=== PATIENT | male | born 1985 | race Caucasian/White ===

== ENCOUNTER 2024-04-02 03:15 | Emergency (ER) | payer MEDICARE, SELFPAY ==
--- NOTE | ~2024-04-02 | CT_ITS ---
EXAMINATION: NONCONTRAST HEAD CT NONCONTRAST CERVICAL SPINE CT INDICATION INFORMATION: Fall with injury COMPARISON: 02/10/2021 TECHNIQUE: Separate noncontrast CT examinations of the head and cervical spine were performed. Coronal head CT images and coronal and sagittal cervical spine images were created at the technologist workstation. DLP: 1545 mGy-cm DOSE LOWERING TECHNIQUES: This CT examination was performed using dose optimization techniques as appropriate, variously including the following: - Automated exposure control - Adjustment of mA and/or kV according to patient size (this includes techniques or standardized protocols for targeted exams were dose is matched to indication/reason for exam; i.e. extremities or head) - Use of iterative reconstruction technique FINDINGS: Head: Redemonstrated regions of right frontal and left frontotemporal encephalomalacia which appears slightly progressive on the left compared to prior. There is no evidence of acute intracranial hemorrhage or definite acute territorial infarction in this setting though evaluation for acute pathology is limited in some regions given the background changes. There is some leftward bowing of the falx anteriorly which is suggestive of a chronic finding. Redemonstrated region of chronic hypoattenuation in the inferior left cerebellum. Soto to white matter differentiation is otherwise preserved. No acute extra-axial fluid collections are identified. Increased size of the left lateral ventricle, suspicious for progressive ex vacuo dilatation. Subcutaneous swelling/hematoma noted in the left parietal region. No acute fracture is seen. Redemonstrated postoperative changes of the left calvarium including with graft material. The mastoid air cells and visualized portions of the paranasal sinuses are well-aerated. Cervical spine: There is anatomic alignment of the vertebral bodies and posterior elements. Vertebral body heights are maintained. There is disc space narrowing and endplate osteophyte formation in the lower cervical spine. No evidence of acute fracture. No prevertebral soft tissue swelling. Visualized portions of the lung apices are unremarkable. The thyroid gland is unremarkable. CT/CT cervical spine wo IV con IMPRESSION: HEAD: No acute intracranial findings identified. Subcutaneous swelling/hematoma in the left parietal region. Redemonstrated chronic intracranial changes including regions of right frontal and left frontotemporal encephalomalacia. CERVICAL SPINE: No acute findings identified.
[2024-04-02 03:23] VITALS: BP 129/74; PULSE 92; RESP 18; TEMP 36.4; O2SAT 97; BMI 33.9
[2024-04-02 03:25] VITALS: BP 129/74; PULSE 92; RESP 17; TEMP 36.4; O2SAT 94
--- NOTE | 2024-04-02 03:41 | PC.NURSE ---
pt belongings placed in C5.
--- NOTE | 2024-04-02 03:42 | ED.ALCOHOL ---
HPI - Alcohol General Chief Complaint: ETOH/Substance Use Stated Complaint: etoh Time Seen by Provider: 04/02/24 03:33 Source: family (Mother, Loi) and EMS Mode of arrival: EMS Limitations: other (Patient refused to talk) History of Present Illness ED Provider: Dr. Waldemar Osborne HPI narrative: 35-year-old male with traumatic brain injury with craniotomy 2010 and known seizure disorder who presents emergency department for evaluation of altered mental status. According to nursing notes the patient was found lying in the middle of the street. Is felt that the patient was intoxicated he did have a left posterior scalp hematoma with minor scrapes on his elbow and knees. Patient does have traumatic brain injury with dysarthric speech. The patient refused to speak to the nurse but did speak to the clinical dental technician. The patient would not answer questions when I try to talk to him. Related Data Home Medications ?Medication ?Instructions ?Recorded ?Confirmed albuterol sulfate 90 mcg/actuation 2 puff inhalation Q6H PRN 01/24/23 aerosol inhaler (ProAir HFA) clonazepam 0.5 mg tablet 0.5 mg PO TID 01/24/23 labetalol 200 mg tablet 400 mg PO Q8H 01/24/23 levetiracetam 500 mg tablet 1,000 mg PO BID 01/24/23 omeprazole 20 mg tablet,delayed 20 mg PO DAILY 01/24/23 release Previous Rx's ?Medication ?Instructions ?Recorded sulfamethoxazole 800 1 tab PO BID 10 days #20 tabs 01/24/23 mg-trimethoprim 160 mg tablet (Bactrim DS) Allergies Allergy/AdvReac Type Severity Reaction Status Date / Time onion [ONIONS] Allergy Intermediate VOMIT BLOOD Verified 04/02/24 03:25 Review of Systems Review of Systems: Yes all other systems are reviewed and are negative PMFSH Past Medical History Medical History (Updated 04/02/24 @ 06:55 by Waldemar Osborne MD) Seizure Social History Social History Unable to assess alcohol history related to: Refusing to respond Patient Tobacco Use Status: Never used Tobacco Use of substances other than those prescribed or required for medical reasons: Refusing to respond Advance Directives: No Advance Directives Information Provided: No Physical Exam ED Vital Signs: Vital Signs - 24 hr 04/02/24 03:23 04/02/24 03:25 04/02/24 06:23 Temperature 97.6 F 97.6 F 97.8 F Pulse Rate 92 92 86 Respiratory Rate 18 17 17 Blood Pressure 129/74 129/74 100/73 Pulse Oximetry 97 94 95 Oxygen Delivery Method Room Air Room Air Room Air BMI result Body Mass Index 33.9 Vital signs were Exam: General: Awake, he does not appear to be in distress, he was nonverbal Head: Patient has a left frontal parietal skull defect secondary to craniotomy, patient has a 3 x 3 cm hematoma to the left posterior aspect of his scalp EENT: PERRL, Lids normal, sclera normal, conjunctiva normal, nose normal , ears normal, throat without erythema or exudates Neck: Supple, no adenopathy Lung: breath sounds symmetric, no wheezing, rales or rhonchi Chest: symmetric movement, nontender Heart: regular rate and rhythm, normal S1, S2 no murmurs or rubs Abdomen: soft, non-tender, nondistended, normal bowel sounds Back: no vertebral tenderness, no CVAT Extremities: no deformities, he does have abrasions on his elbows and knees Neuro: Awake, patient is nonverbal, he appears to be able to move all his extremities symmetrically Medical Decision Making Medical Decision Making MDM Narrative: 35-year-old male with traumatic brain injury with craniotomy 2010 and known seizure disorder who presents emergency department for evaluation of altered mental status who was found lying in the middle the street with scalp hematoma to the left posterior aspect of his head, abrasions on his knees and elbows and question of alcohol intoxication. The patient has dysarthric speech secondary to his traumatic brain injury but was not answering questions atrial presentation to the emergency department. Patient's vital signs were normal. Patient's physical examination did reveal a left posterior scalp hematoma and abrasions on his knees and elbows otherwise exam was unremarkable. Differential diagnosis: ?Includes but is not limited to closed head injury, cerebral bleed, seizure, postictal aphasia, alcohol intoxication, polysubstance use, anemia, electrolyte abnormalities Following evaluation was ordered: CT scan of the brain and cervical spine without contrast, CBC, CMP, lipase, magnesium, ethanol level, urine drug screen Course: 04:55 My independent interpretation patient's laboratory evaluation as follows: CBC was normal. CMP was normal. Lipase was normal. Ethanol level was elevated at 341. CT scan of the patient's head and cervical spine did not reveal any acute findings. Patient's fall most likely secondary to alcohol intoxication however seizure can not be excluded. I did discuss these findings with the patient and the patient's mother. Staff did walk the patient however he did appear to be ataxic therefore he will be kept in the emergency department several more hours until he was able to walk without staggering. 06:56 The patient was walked by me and an telecommunications field technician. Patient's gait significantly improved. His mother states that his gait appears to be back to normal and she was making home at this time. Admission/Observation Consideration of admission/observation: Escalation of care including admission/observation considered Lab Data MDM Lab Attestation statement: I reviewed the patient's lab results. 04/02/24 03:45 04/02/24 03:45 Labs: Lab Results 04/02/24 04/02/24 Range/Units 03:45 04:30 WBC 7.2 (4.8-10.8) X10*3/uL RBC 4.78 (4.60-5.80) X10*6/uL Hgb 14.2 (14.0-18.0) g/dl Hct 40.0 L (42.0-52.0) % MCV 83.7 (80.0-98.0) fL MCH 29.7 (27.0-33.0) pg MCHC 35.5 (31.0-36.0) g/dl RDW 12.2 (11.0-16.0) % Plt Count 232 (160-400) X10*3/uL MPV 8.9 L (9.4-12.4) fL Immature Gran % (Auto) 0.7 H (0.0-0.4) % Neut % (Auto) 43.9 L (45-73) % Lymph % (Auto) 42.2 H (20-40) % Larimer % (Auto) 6.7 (2-11) % Eos % (Auto) 5.7 H (0-4) % Baso % (Auto) 0.8 (0-2) % Lymph # (Auto) 3.0 (1.2-4.9) X10*3/uL Larimer # (Auto) 0.5 (0.1-1.2) X10*3/uL Eos # (Auto) 0.4 (0.0-0.4) X10*3/uL Baso # (Auto) 0.1 (0.0-0.2) X10*3/uL Abs Immat Gran (auto) 0.05 H (0.00-0.03) X10*3/uL Absolute Neuts (auto) 3.1 (2.0-8.3) x10*3/uL Absolute Nucleated RBC 0.000 (0.0-0.012) X10*3/uL Nucleated RBC % (auto) 0.0 (0.0-0.2) /100WBC Sodium 141 (135-145) mmol/L Potassium 4.2 (3.3-5.1) mmol/L Chloride 107 (96-108) mmol/L Carbon Dioxide 22 (22-29) mmol/L Anion Gap 16 (12-20) BUN 9 (9-16) mg/dL Creatinine 1.03 (0.5-1.4) mg/dL Estim Creat Clear Calc 116.9 Estimated GFR > 60 Random Glucose 97 (60-115) mg/dL Calcium 9.2 D (8.4-10.2) mg/dL Magnesium 2.1 (1.6-2.6) mg/dL Total Bilirubin 0.4 (0.0-1.0) mg/dL AST 25 (5-37) U/L ALT 55 H (0-40) U/L Alkaline Phosphatase 60 (39-117) U/L Total Protein 7.4 (6.5-8.0) g/dL Albumin 4.5 (3.5-5.0) g/dL Lipase 30 (8-78) U/L Urine Opiates Screen Not Detected (Not Detect) Ur Buprenorphine Scrn Not Detected (Not Detect) ng/mL Ur Oxycodone Screen Not Detected (Not Detect) ng/mL Urine Methadone Screen Not Detected (Not Detect) ng/mL Urine Fentanyl Screen Not Detected (Not Detect) Ur Barbiturates Screen Not Detected (Not Detect) Ur Phencyclidine Scrn Not Detected (Not Detect) Ur Amphetamines Screen Not Detected (Not Detect) U Benzodiazepines Scrn Not Detected (Not Detect) Urine Cocaine Screen POSITIVE H (Not Detect) U Marijuana (THC) Screen Not Detected (Not Detect) Ethyl Alcohol 341 H* mg/dL Radiology Impression Discussion of test interpretation with radiology: I have reviewed the radiologist's reading. Radiologist Impression: CT head and cervical spine wo IV con IMPRESSION: HEAD: No acute intracranial findings identified. Subcutaneous swelling/hematoma in the left parietal region. Redemonstrated chronic intracranial changes including regions of right frontal and left frontotemporal encephalomalacia. CERVICAL SPINE: No acute findings identified. Dictated By: Larry Zelaya MD Discharge Plan Discharge Clinical Impression: Fall, Alcoholic intoxication, Head injury, Hematoma of left parietal scalp Patient Disposition: Home, Self-Care Additional Instructions: Your blood work was unremarkable except for a very high alcohol level. When we check your blood the alcohol level that represents intoxication is 80. Your blood alcohol level today was 341 which is extremely high. The CT scan of your head and neck did not reveal any skull fractures or bleeding in the brain which is reassuring. Continue taking medications as prescribed by your providers Follow-up with your doctor in 2 days. Please return to the emergency department if your symptoms get worse or if you develop any symptoms that are concerning to you. Prescriptions: No Action clonazepam 0.5 mg tablet 0.5 mg PO TID labetalol 200 mg tablet 400 mg PO Q8H omeprazole 20 mg tablet,delayed release (DR/EC) 20 mg PO DAILY levetiracetam 500 mg tablet 1,000 mg PO BID albuterol sulfate [ProAir HFA] 90 mcg/actuation HFA aerosol inhaler 2 puff inhalation Q6H PRN sulfamethoxazole-trimethoprim [Bactrim DS] 800-160 mg tablet 1 tab PO BID 10 Days Qty: 20 0RF Print Language: Bahamian
[2024-04-02 03:48] LABS: MANUAL DIFF FLAG NO
[2024-04-02 03:49] LABS: Basophils Absolute Auto 0.1 X10*3/uL (0.0-0.2); Basophils Percent Auto 0.8 % (0-2); Eosinophils Absolute Auto 0.4 X10*3/uL (0.0-0.4); Eosinophils Percent Auto 5.7 % (0-4); Hemoglobin 14.2 g/dl (14.0-18.0); Imm Gran Abs Auto 0.05 X10*3/uL (0.00-0.03); Imm Gran Pct Auto 0.7 % (0.0-0.4); Lymphocytes Percent Auto 42.2 % (20-40); Mean Corpuscular HGB Conc 35.5 g/dl (31.0-36.0); Mean Corpuscular Hemoglobin 29.7 pg (27.0-33.0); Mean Corpuscular Volume 83.7 fL (80.0-98.0); Mean Platelet Volume 8.9 fL (9.4-12.4); Monocytes Absolute Auto 0.5 X10*3/uL (0.1-1.2); Monocytes Percent Auto 6.7 % (2-11); Neutrophils Absolute Auto 3.1 x10*3/uL (2.0-8.3); Neutrophils Percent Auto 43.9 % (45-73); Platelet Count 232 X10*3/uL (160-400); Red Blood Count 4.78 X10*6/uL (4.60-5.80); Red Cell Distribution Width 12.2 % (11.0-16.0); White Blood Count 7.2 X10*3/uL (4.8-10.8)
[2024-04-02 04:05] LABS: Alanine Aminotransferase 55 U/L (0-40); Albumin Level 4.5 g/dL (3.5-5.0); Alkaline Phosphatase 60 U/L (39-117); Anion Gap 16 (12-20); Aspartate Amino Transferase 25 U/L (5-37); Bilirubin Total 0.4 mg/dL (0.0-1.0); Blood Urea Nitrogen 9 mg/dL (9-16); Calcium 9.2 mg/dL (8.4-10.2); Carbon Dioxide 22 mmol/L (22-29); Chloride 107 mmol/L (96-108); Creatinine Clr Calc Pharmacy 116.9; Estimated Glomerular Filt Rate > 60; Ethanol 341 mg/dL; Glucose Random 97 mg/dL (60-115); Lipase 30 U/L (8-78); Magnesium 2.1 mg/dL (1.6-2.6); Potassium 4.2 mmol/L (3.3-5.1); Sodium 141 mmol/L (135-145); Total Protein 7.4 g/dL (6.5-8.0)
[2024-04-02 04:49] LABS: Amphetamine Screen Urine Not Detected (Not Detect); Barbiturates, Urine Not Detected (Not Detect); Benzodiazepines Screen Urine Not Detected (Not Detect); Buprenorphine Scr Not Detected (Not Detect); Cannabinoid Screen Urine Not Detected (Not Detect); Cocaine Screen Urine POSITIVE (Not Detect); Fentanyl, urine Not Detected (Not Detect); Methadone Screen, Urine Not Detected (Not Detect); Opiate Screen Urine Not Detected (Not Detect); Oxycodone Screen Urine Not Detected (Not Detect); Phencyclidine Screen Urine Not Detected (Not Detect)
--- OUTSIDE RECORDS SUMMARY | 2024-04-02 06:17 | XMS_ITS | Continuity of Care Document ---
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 (Discharge Diagnosis) - 10/23/23 History of substance abuse(Discharge Diagnosis) - 10/23/23 Attending Physician: Annalisa Mishra MD Allergies, Adverse Reactions, Alerts Substance Reaction Severity Status Onions stomach bleed Active Immunizations Given and Recorded Vaccine Date Status Refusal Reason tetanus/diphtheria/pertussis, acel(Tdap) 02/10/21 Recorded SARS-CoV-2 (COVID-19) mRNA-1273 vaccine 02/09/21 R ecorded SARS-CoV-2 (COVID-19) mRNA-1273 vaccine 01/10/21 R ecorded tetanus-diphtheria toxoids (Td) 09/08/17 Recorded influenza virus vaccine, inactivated 07/04/17 Marvin rded pneumococcal 23-valent vaccine 08/21/11 Given Medications albuterol 90 mcg/inh inhalation powder 2 puffs = 180 mcg, Inhalation, Every 6 hours, PRN as needed, # 1 each, 3 Refills, Maintenance, 07/18/21 13:34:00 EST, Powder, [id number], Partial fill upon patient request if the prescriptionis for a schedule II opioid drug., 2 puffs Inhalati... Start Date: 07/18/21 Status: Ordered Benefiber oral powder for reconstitution = 3.5 Gm, By Mouth, Daily, dissolve in 4 to 8 oz of beverage, # 105 Gm, 2 Refills, Maintenance, 06/03/23 13:34:00 EDT, REC Powder, [facility][id number], Partial fill upon patient request if the prescription is for a schedule II opioid drug., 3.5 Gm By M... Start Date: 06/03/23 Stop Date: 09/01/23 Status: Ordered clonazePAM 0.5 mg oral tablet 1 tablet, By Mouth, 3 times a day, # 84 tablet, 0 Refills, Maintenance, 06/29/23 17:01:00 EDT, [facility] #[id number], 178, cm, 06/03/23 13:07:00 EDT, Height, 104.4, kg, 04/27/23 7:15:00 EDT, Dry Weight Start Date: 06/29/23 Status: Ordered clonazePAM 0.5 mg oral tablet 1 tablet = 0.5 mg, By Mouth, 3 times a day, PRN Anxiety, # 84 tablet, 0 Refills, Maintenance, 09/24/23 15:05:00 EST, [facility] #[id number], 178, cm, 09/10/23 9:22:00 EST, Height, 104.4, kg, 04/27/23 7:15:00 EDT, Dry Weight Start Date: 09/24/23 Status: Ordered D3 By Mouth, Daily, 0 Refills, Maintenance, 07/28/22 13:48:00 EST, Partial fill upon patient request if the prescription is for a schedule II opioid drug. Start Date: 07/28/22 Status: Ordered dicyclomine 10 mg oral capsule 1 capsule, By Mouth, 4 times a day, PRN NEEDED FOR IBS CRAMPING, # 360 capsule, 1 Refills, Maintenance, 09/17/23 12:02:00 EST, [facility] ST[id number], 178, cm, 09/10/23 9:22:00 EST, Height, 104.4, kg, 04/27/23 7:15:00 EDT, Dry Weight Start Date: 09/17/23 Status: Ordered Eliquis 5 mg oral tablet 1 tablet = 5 mg, By Mouth, 2 times a day, # 60 tablet, 5 Refills, Maintenance, 10/12/23 10:38:00 EST, Tablet, Partial fill upon patient request if the prescription is for a schedule II opioid drug. Start Date: 10/12/23 Status: Ordered labetalol 200 mg oral tablet 2 tablet, By Mouth, Every 8 hours, # 540 tablet, 1 Refills, Maintenance, 09/17/23 18:52:00 EST, [id number], 178, cm, 09/10/23 9:22:00 EST, Height, 104.4, kg, 04/27/23 7:15:00 EDT, Dry Weight Start Date: 09/17/23 Status: Ordered levETIRAcetam 500 mg oral tablet 2 tablet, By Mouth, 2 times a day, # 360 tablet, 1 Refills, Maintenance, 06/04/23 12:05:00 EDT, [id number], 178, cm, 06/03/23 13:07:00 EDT, Height, 104.4, kg, 04/27/23 7:15:00 EDT, Dry Weight Start Date: 06/04/23 Status: Ordered Multivitamin Tablet 1 tablet, Nasogastric Tube, Daily, 0 Refills, Maintenance, 04/04/21 14:18:00 EDT, Tablet, Partial fill upon patient request if the prescription is for a schedule II opioid drug. Start Date: 04/04/21 Status: Ordered naltrexone 50 mg oral tablet See Instructions, By Mouth Daily 1/2 tablet for 10 days the 1 tablet thereare, # 30 tablet, 3 Refills, Maintenance, 05/20/22 10:20:00 EDT, Tablet, [facility]/pharm[facility] #[id number], Partial fill upon patient request if the prescription is for a schedule II opioid drTimo. Start Date: 05/20/22 Status: Ordered omeprazole 20 mg oral delayed release tablet 1 tablet, By Mouth, Daily, # 30 tablet, 1 Refills, Maintenance, 11/16/22 17:01:00 EDT, [id number], 173.7, cm, 10/23/22 9:44:00 EST, Height, 104.5, kg, 04/01/21 6:08:00 EDT, Dry Weight Start Date: 11/16/22 Status: Ordered RisperDAL 0.25 mg oral tablet 0.25 mg, 1, tablet, By Mouth, 2 times a day, # 60 tablet, Refills 2, Tot. Refills 2, Maintenance, 07/18/21 13:36:00 EST, Route to Pharmacy Electronically, [facility]/pharmacy #[id number], Partial fill upon patient request if the prescription is for a schedule II o... Start Date: 07/18/21 Status: Ordered sertraline 100 mg oral tablet 1 tablet = 100 mg, By Mouth, Daily, # 90 tablet, 3 Refills, Maintenance, 04/23/21 16:47:00 EDT, Tablet, [facility]/pharm[facility] #[id number], Partial fill upon patient request if the prescription is for a schedule II opioid drug., 173.7, cm, 04/23/21 14:42:00 EDT, Heig... 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 Active Equilibrium disorder Confirmed Active Alcohol use disorder, moderate, dependence Confirmed Active Obese class I Confirmed Active MDD (major depressive disorder), recurrent episode Confirmed Active Seizures Confirmed Active TBI (traumatic brain injury) Confirmed Active Urinary incontinence Confirmed Active 14864 Diagnosis Diagnosis Type Effective Dates Health Status Clinical Service Informant Penile cyst Discharge Diagnosis 10/23/23 Alcohol use disorder, moderate, dependence Discharge Diagnosis 10/23/23 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 Discharge Diagnosis 10/23/23 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 Discharge Diagnosis 10/23/23 History of substance abuse Discharge Diagnosis 10/23/23 Vital Signs Most recent to oldest [Reference Range]: 1 Height 178 cm (10/23/23 12:39 PM) Weight 105.3 kg (10/23/23 12:39 PM) Oxygen Saturation [94-100 %] 99 % (10/23/23 12:39 PM) Pulse Rate [55-90 bpm] 64 bpm (10/23/23 12:39 PM) Body Mass Index [18.5-24.99 kg/m2] 33.23 kg/m2 *>HHI* (10/23/23 12:39 PM) Blood Pressure [90-138/55-84 mm Hg] 114/ 76mm Hg (10/23/23 12:39 PM) Blood pressure sites Arm, left (10/23/23 12:39 PM) Weight Obtained Via Standing scale (10/23/23 12:39 PM) Social History Social History Type Response Smoking Status Never (less than 100 in lifetime) entered on: 04/17/21 Sex Patient Care team information Care Team Personnel Name: Annalisa Mishra MD Position: [facility] Physician - Primary Care Member Role: PCP Address: Address: [address] [place] [address] Name: Oneyda Swift RN Position: [facility] ED RN W/OE and Tasks Member Role: Primary Care Nurse Name: Shelley Cowan RN Position: [facility] RN Supv Member Role: Primary Care Nurse Name: Mary Cordoba RN Position: [facility] RN Member Role: Primary Care Nurse Name: Brenda Cabrera RN Position: [facility] SN RN Member Role: Primary Care Nurse Name: Rosa Ngo RN Position: [facility] RN Member Role: Primary Care Nurse Name: Caryn Tripathi RN Position: [facility] RN Member Role: Primary Care Nurse Name: Roma Baker RN Position: [facility] RN Member Role: Primary Care Nurse Name: Anthony Fowler RN Position: [facility] RN Member Role: Primary Care Nurse Name: Janina Michele Position: S RN Member Role: Primary Care Nurse Name: Denise Ibarra RN Position: [facility] RN Member Role: Primary Care Nurse Name: Tiburcio Hercules RN Position: [facility] RN Supv Member Role: Primary Care Nurse Name: Brenna Collazo RN Position: [facility] RN Member Role: Primary Care Nurse Name: Susan Sheikh RN Position: S RN Member Role: Primary Care Nurse Name: Yesy Adams Position: S RN Member Role: Primary Care Nurse Name: Delores Garcia RN Position: [facility] RN Member Role: Primary Care Nurse Name: Suzanna Kim RN Position: [facility] RN Member Role: Primary Care Nurse Name: Chandrika Luis RN Position: S RN Member Role: Primary Care Nurse Name: Eda uLna RN Position: [facility] RN Member Role: Primary Care Nurse Care Team Related Persons Name: ELI KIM Address: [address] [address] Name: JUAN KIM
--- OUTSIDE RECORDS SUMMARY | 2024-04-02 06:17 | XMS_ITS | Continuity of Care Document ---
Author Organization [facility] Address [address] [place] [address]- Care Team Providers Care Maintenance Service Dispatcher Name Role Phone Annalisa Mishra MD Primary Care Physician Encounter [facility] Date(s): 09/24/23 - 10/24/23 [facility] [address] [place], [place] [address] Allergies, Adverse Reactions, Alerts Substance Reaction Severity [...] Refills, Maintenance, 07/18/21 13:34:00 EST, Powder, [id number], Partial fill upon patient request if the prescriptionis for a schedule II opioid drug., 2 puffs Inhalati... Start Date: 07/18/21 Status: Ordered Benefiber oral powder for reconstitution = 3.5 Gm, By Mouth, Daily, dissolve in 4 to 8 oz of beverage, # 105 Gm, 2 Refills, Maintenance, 06/03/23 13:34:00 EDT, REC Powder, [id number], Partial fill upon patient request if the prescription is for a schedule II opioid drug., 3.5 Gm By M... Start Date: 06/03/23 Stop Date: 09/01/23 Status: Ordered clonazePAM 0.5 mg oral tablet 1 tablet, By Mouth, 3 times a day, # 84 tablet, 0 Refills, Maintenance, 06/29/23 17:01:00 EDT, [facility]/pharmacy #[id number], 178, cm, 06/03/23 13:07:00 EDT, Height, 104.4, kg, 04/27/23 7:15:00 EDT, Dry Weight Start Date: 06/29/23 Status: Ordered clonazePAM 0.5 mg oral tablet 1 tablet = 0.5 mg, By Mouth, 3 times a day, PRN Anxiety, # 84 tablet, 0 Refills, Maintenance, 09/24/23 15:05:00 EST, [facility]/pharmacy #[id number], 178, cm, 09/10/23 9:22:00 EST, Height, [...] capsule, 1 Refills, Maintenance, 09/17/23 12:02:00 EST, [id number], 178, cm, 09/10/23 9:22:00 EST, Height, 104.4, [...] 1 Refills, Maintenance, 09/17/23 18:52:00 EST, [facility], 178, cm, 09/10/23 9:22:00 EST, Height, 104.4, kg, 04/27/23 7:15:00 EDT, Dry Weight Start Date: 09/17/23 Status: Ordered levETIRAcetam 500 mg oral tablet 2 tablet, By Mouth, 2 times a day, # 360 tablet, 1 Refills, Maintenance, 06/04/23 12:05:00 EDT, [facility], 178, cm, 06/03/23 13:07:00 EDT, Height, 104.4, [...] 3 Refills, Maintenance, 05/20/22 10:20:00 EDT, Tablet, [facility]/pharmacy #[id number], Partial fill upon patient request if the prescription is for a schedule II opioid dr... Start Date: 05/20/22 Status: Ordered omeprazole 20 mg oral delayed release tablet 1 tablet, By Mouth, Daily, # 30 tablet, 1 Refills, Maintenance, 11/16/22 17:01:00 EDT, [facility], 173.7, cm, 10/23/22 9:44:00 EST, Height, 104.5, kg, 04/01/21 6:08:00 EDT, Dry Weight Start Date: 11/16/22 Status: Ordered RisperDAL 0.25 mg oral tablet 0.25 mg, 1, tablet, By Mouth, 2 times a day, # 60 tablet, Refills 2, Tot. Refills 2, Maintenance, 07/18/21 13:36:00 EST, Route to Pharmacy Electronically, [facility]/pharmacy #[id number], Partial fill upon patient request if the prescription is for a schedule II o... Start Date: 07/18/21 Status: Ordered sertraline 100 mg oral tablet 1 tablet = 100 mg, By Mouth, Daily, # 90 tablet, 3 Refills, Maintenance, 04/23/21 16:47:00 EDT, Tablet, [facility]/pharmacy #[id number], Partial fill upon patient request if the [...] injury) Confirmed Active Urinary incontinence Confirmed Active 71503 Social History Social History Type Response Smoking Status Never (less than 100 in lifetime) entered on: 04/17/21 Sex Patient Care team information Care Team Personnel Name: Annalisa Mishra MD Position: [facility] Physician - Primary Care Member Role: PCP Address: Address: [address] [place] [address] Name: Oneyda Swift RN Position: [facility] ED RN W/OE and Tasks Member Role: Primary Care Nurse Name: Shelley Cowan RN Position: [facility] RN Supv Member Role: Primary Care Nurse Name: Brenda Cabrera RN Position: [facility] SN RN Member Role: Primary Care Nurse Name: Rosa Ngo RN Position: [facility] RN Member Role: Primary Care Nurse Name: Mary Calix RN Position: [facility] RN Member Role: Primary Care Nurse Name: Caryn Tripathi RN Position: [facility] RN Member Role: Primary Care Nurse Name: Roma Baker RN Position: [facility] RN Member Role: Primary Care Nurse Name: Anthony Fowler RN Position: [facility] RN Member Role: Primary Care Nurse Name: Janina Michele Position: [facility] RN Member Role: Primary Care Nurse Name: Denise Ibarra RN Position: [facility] RN Member Role: Primary Care Nurse Name: Tiburcio Herclues RN Position: [facility] RN Max Member Role: Primary Care Nurse Name: Brenna Collazo RN Position: [facility] RN Member Role: Primary Care Nurse Name: Susan Sheikh RN Position: [facility] RN Member Role: Primary Care Nurse Name: Yesy Adams Position: [facility] RN Member Role: Primary Care Nurse Name: Delores Garcia RN Position: [facility] RN Member Role: Primary Care Nurse Name: Suzanna Kim RN Position: [facility] RN Member Role: Primary Care Nurse Name: Chandrika Luis RN Position: [facility] RN Member Role: Primary Care Nurse Name: Eda Luna RN Position: [facility] RN Member Role: Primary Care Nurse Care Team Related Persons Name: ELI KIM Address: [address] [address] Name: JUAN KIM
--- OUTSIDE RECORDS SUMMARY | 2024-04-02 06:17 | XMS_ITS | Continuity of Care Document ---
Author Organization [facility] em Address Unknown Care Team Providers Care Word Processor Name Role Phone Annalisa Mishra MD Primary Care Physician [place] [facility] [place]11[place]23 - 03/18/23 [facility] Attending Physician: Melisa Olmstead MD Admitting Physician: Melisa Olmstead MD Allergies, Adverse Reactions, Alerts Substance Reaction [...] puffs Inhalati... Start Date: 07/18/21 Status: Ordered clonazePAM 0.5 mg oral tablet 1 tablet, By Mouth, 3 times a day, # 84 tablet, 0 Refills, Maintenance, 02/23/23 17:15:00 EDT, [id number], 173.7, cm, 02/04/23 9:59:00 EDT, Height, 104.5, kg, 04/01/21 6:08:00 EDT, Dry Weight Start Date: 02/23/23 Status: Ordered D3 By Mouth, Daily, 0 Refills, Maintenance, 07/28/22 13:48:00 EST, Partial fill upon patient request if the prescription is for a schedule II opioid drug. Start Date: 07/28/22 Status: Ordered Keppra 500 mg oral tablet 2 tablet = 1,000 mg, By Mouth, 2 times a day, # 120 tablet, 3 Refills, Maintenance, 02/27/22 12:47:00 EDT, Tablet, [id number], Partial fill upon patient request if the prescription is for a schedule II opioid drug., 173.7, cm, 01/31/22 9:57:00... Start Date: 02/27/22 Status: Ordered labetalol 200 mg oral tablet 2 tablet, By Mouth, Every 8 hours, # 540 tablet, 1 Refills, Maintenance, 09/30/22 15:25:00 EST, [facility], 173.7, cm, 07/28/22 13:45:00 EST, Height, 104.5, kg, 04/01/21 6:08:00 EDT, Dry Weight Start Date: 09/30/22 Status: Ordered levETIRAcetam 500 mg oral tablet 2 tablet = 1,000 mg, By Mouth, 2 times a day, # 360 tablet, 1 Refills, Maintenance, 01/26/23 16:00:00 EDT, [id number], 173.7, cm, 01/15/23 12:41:00 EDT, Height, 104.5, kg, 04/01/21 6:08:00 EDT, Dry Weight Start Date: 01/26/23 Status: Ordered Multivitamin Tablet 1 tablet, Nasogastric [...] 3 Refills, Maintenance, 05/20/22 10:20:00 EDT, Tablet, [id number], Partial fill upon patient request if the prescription is for a schedule II opioid dr... Start Date: 05/20/22 Status: Ordered omeprazole 20 mg oral delayed release tablet 1 tablet, By Mouth, Daily, # 30 tablet, 1 Refills, Maintenance, 11/16/22 17:01:00 EDT, [facility], 173.7, cm, 10/23/22 9:44:00 EST, Height, 104.5, kg, 04/01/21 6:08:00 EDT, Dry Weight Start Date: 11/16/22 Status: Ordered RisperDAL 0.25 mg oral tablet 0.25 mg, 1, tablet, By Mouth, 2 times a day, # 60 tablet, Refills 2, Tot. Refills 2, Maintenance, 07/18/21 13:36:00 EST, Route to Pharmacy Electronically, [facility]/pharmacy #[id number], Partial fill upon patient request if the prescription is for a schedule II o... Start Date: 07/18/21 Status: Ordered sertraline 100 mg oral tablet 1 tablet = 100 mg, By Mouth, Daily, # 90 tablet, 3 Refills, Maintenance, 04/23/21 16:47:00 EDT, Tablet, [facility]/pharmacy #[id number], Partial fill upon patient [...] injury Confirmed Active Equilibrium disorder Confirmed Active MDD (major depressive disorder), recurrent episode Confirmed Active Seizures Confirmed Active Severe obesity (BMI 35.0-39.9) with comorbidity Confirmed Active TBI (traumatic brain injury) Confirmed Active Urinary incontinence Confirmed Active 40811 Vital Signs Most recent to oldest [Reference Range]: 1 Height 173.7 cm (03/11/23 10:57 AM) Social History Social History Type Response Smoking Status Never (less than 100 in lifetime) entered on: 04/17/21 Sex Patient Care team information Care Team Personnel Name: Annalisa Mishra MD Position: [facility] Physician - Primary Care Member Role: PCP Address: Address: [address] [place] [id number] Name: Oneyda Swift RN Position: S RN Member Role: Primary Care Nurse Name: Shelley Cowan RN Position: [facility] RN Supv Member Role: Primary Care Nurse Name: Brenda Cabrera RN Position: [facility] SN RN Member Role: Primary Care Nurse Name: Rosa Ngo RN Position: [facility] RN Member Role: Primary Care Nurse Name: Charli Cosme RN Position: [facility] RN Member Role: Primary Care Nurse Name: Mary Calix RN Position: [facility] RN Member Role: Primary Care Nurse Name: Caryn Tripathi RN Position: [facility] RN Member Role: Primary Care Nurse Name: Roma Baker RN Position: [facility] RN Member Role: Primary Care Nurse Name: Anthony Fowler RN Position: [facility] RN Member Role: Primary Care Nurse Name: Janina Michele Position: [facility] RN Member Role: Primary Care Nurse Name: Denise Ibarra RN Position: [facility] RN Member Role: Primary Care Nurse Name: Tiburcio Hercules RN Position: [facility] RN Supv Member Role: Primary Care Nurse Name: Brenna Collazo RN Position: [facility] RN Member Role: Primary Care Nurse Name: Susan Sheikh RN Position: [facility] RN Member Role: Primary Care Nurse Name: Yesy Adams Position: [facility] RN Member Role: Primary Care Nurse Name: Delores Garcia RN Position: [facility] RN Member Role: Primary Care Nurse Name: Susan Bates RN Position: [facility] RN Member Role: Primary Care Nurse Name: Suzanna Kim RN Position: [facility] RN Member Role: Primary Care Nurse Name: Chandrika Luis RN Position: [facility] RN Member Role: Primary Care Nurse Name: Jessica Fulton RN Position: [facility] PCO w/OE and EZ Script Member Role: Primary Care Nurse Name: Eda Luna RN Position: [facility] RN Member Role: Primary Care Nurse Care Team Related Persons Name: ELI KIM Address: [address] [address]
--- OUTSIDE RECORDS SUMMARY | 2024-04-02 06:17 | XMS_ITS | Continuity of Care Document ---
Author Organization [facility] Address [address] [place] [address]- Care Team Providers Care Clinic Office Coordinator Name Role Phone Annalisa Mishra MD Primary Care Physician [place] [facility] [place]23 [place] 07/29/23 [facility] [address] [place], [place] [address] Allergies, Adverse Reactions, Alerts Substance Reaction [...] tablet, 0 Refills, Maintenance, 06/29/23 17:01:00 EDT, [id number], 178, cm, 06/03/23 13:07:00 EDT, Height, 104.4, kg, 04/27/23 7:15:00 EDT, Dry Weight Start Date: 06/29/23 Status: Ordered clonazePAM 0.5 mg oral tablet 1 tablet = 0.5 mg, By Mouth, 3 times a day, PRN Anxiety, # 84 tablet, 0 Refills, Maintenance, 07/23/23 14:06:00 EST, [id number], 178, cm, 06/03/23 13:07:00 EDT, Height, 104.4, kg, 04/27/23 7:15:00 EDT, Dry Weight Start Date: 07/23/23 Status: Ordered D3 By Mouth, Daily, 0 Refills, Maintenance, 07/28/22 13:48:00 EST, Partial fill upon patient request if the prescription is for a schedule II opioid drug. Start Date: 07/28/22 Status: Ordered dicyclomine 10 mg oral capsule 1 capsule = 10 mg, By Mouth, 4 times a day, PRN IBS cramping, # 120 capsule, 5 Refills, Maintenance, 06/03/23 13:34:00 EDT, Capsule, [id number], Partial fill upon patient request if the prescription is for a schedule II opioid drug., 178, cm,... Start Date: 06/03/23 Stop Date: 11/30/23 Status: Ordered labetalol 200 mg oral tablet 2 tablet, By Mouth, Every 8 hours, # 540 tablet, 1 Refills, Maintenance, 04/29/23 7:49:00 EDT, [id number], 178, cm, 04/27/23 7:15:00 EDT, Height, 104.4, kg, 04/27/23 7:15:00 EDT, Dry Weight Start Date: 04/29/23 Status: Ordered levETIRAcetam 500 mg oral tablet 2 tablet, By Mouth, 2 times a day, # 360 tablet, 1 Refills, Maintenance, 06/04/23 12:05:00 EDT, [facility], 178, cm, 06/03/23 13:07:00 EDT, Height, 104.4, [...] Refills, Maintenance, 11/16/22 17:01:00 EDT, [facility], 173.7, cm, 10/23/22 9:44:00 EST, Height, 104.5, kg, 04/01/21 6:08:00 EDT, Dry Weight Start Date: 11/16/22 Status: Ordered RisperDAL 0.25 mg oral tablet 0.25 mg, 1, tablet, By Mouth, 2 times a day, # 60 tablet, Refills 2, Tot. Refills 2, Maintenance, 07/18/21 13:36:00 EST, Route to Pharmacy Electronically, [id number], Partial fill upon patient request if the prescription is for a schedule II o... Start Date: 07/18/21 Status: Ordered sertraline 100 mg oral tablet 1 tablet = 100 mg, By Mouth, Daily, # 90 tablet, 3 Refills, Maintenance, 04/23/21 16:47:00 EDT, Tablet, [id number], Partial fill upon [...] injury Confirmed Active Equilibrium disorder Confirmed Active Obese class I Confirmed Active MDD (major depressive disorder), recurrent episode Confirmed Active Seizures Confirmed Active TBI (traumatic brain injury) Confirmed Active Urinary incontinence Confirmed Active 57147 Social History Social History Type Response Smoking Status Never (less than 100 in lifetime) entered on: 04/17/21 Sex Patient Care team information Care Team Personnel Name: Annalisa Mishra MD Position: [facility] Physician - Primary Care Member Role: PCP Address: Address: [address] [place] [address] Name: Oneyda Swift RN Position: [facility] ED RN W/OE and Tasks Member Role: Primary Care Nurse Name: Shelley Cowan RN Position: [facility] RN Supv Member Role: Primary Care Nurse Name: Brenda Cabrera RN Position: [facility] RN Member Role: Primary Care Nurse Name: Rosa Ngo RN Position: [facility] RN Member Role: Primary Care Nurse Name: Charli Cosme RN Position: [facility] RN Member Role: Primary Care Nurse Name: Mary Calix RN Position: [facility] RN Member Role: Primary Care Nurse Name: Caryn Tripathi RN Position: [facility] RN Member Role: Primary Care Nurse Name: Roma Baker RN Position: [facility] RN Member Role: Primary Care Nurse Name: Anthony Fowler RN Position: [facility] RN Member Role: Primary Care Nurse Name: Janina Michele Position: [facility] RN Member Role: Primary Care Nurse Name: Denise Ibarra RN Position: [facility] RN Member Role: Primary Care Nurse Name: Tiburcio Hercules RN Position: [facility] RN Supv Member Role: Primary Care Nurse Name: Brenna Collazo RN Position: [facility] RN Member Role: Primary Care Nurse Name: Susan Sheikh RN Position: [facility] RN Member Role: Primary Care Nurse Name: Yesy Adams Position: [facility] RN Member Role: Primary Care Nurse Name: Delores Garcia RN Position: [facility] RN Member Role: Primary Care Nurse Name: Susan Bates RN Position: [facility] RN Member Role: Primary Care Nurse Name: Suzanna Kim RN Position: [facility] RN Member Role: Primary Care Nurse Name: Chandrika Luis RN Position: [facility] RN Member Role: Primary Care Nurse Name: Eda Luna RN Position: [facility] RN Member Role: Primary Care Nurse Care Team Related Persons Name: ELI KIM Address: [address] [address]
--- OUTSIDE RECORDS SUMMARY | 2024-04-02 06:17 | XMS_ITS | Continuity of Care Document ---
Author Organization [facility] em Address Unknown Care Team Providers Care Stock Repairer Name Role Phone Annalisa Mishra MD Primary Care Physician [place] [facility] [place](s[place] 02/04/23 - 02/11/23 [facility] Attending Physician: Melisa Olmstead MD Admitting Physician: Melisa Olmstead MD Referring Physician: Denise Ya MD Allergies, Adverse Reactions, Alerts Substance Reaction [...] Status: Ordered clonazePAM 0.5 mg oral tablet See Instructions, TAKE 1 TABLET BY MOUTH 3 TIMES A DAY, # 84 tablet, 0 Refills, Maintenance, 02/03/23 14:35:00 EDT, [id number], 173.7, cm, 01/28/23 10:47:00 EDT, Height, 104.5, kg, 04/01/21 6:08:00 EDT, Dry Weight Start Date: 02/03/23 Status: Ordered D3 By Mouth, Daily, 0 Refills, Maintenance, 07/28/22 13:48:00 EST, Partial fill upon patient request if the prescription is for a schedule II opioid drug. Start Date: 07/28/22 Status: Ordered Golytely - oral powder for reconstitution See Instructions, Drink 240mL every 15 minutes until gone, # 4,000 mL, 0 Refills, Maintenance, 01/15/23 13:28:00 EDT, [facility]/pharmacy #[id number], Partial fill upon patient request if the prescription is for a schedule II opioid drug., Drink 240mL every 15 min... Start Date: 01/15/23 Status: Ordered Keppra 500 mg oral tablet [...] 1 Refills, Maintenance, 09/30/22 15:25:00 EST, [facility], 173.7, cm, 07/28/22 13:45:00 EST, Height, 104.5, [...] Refills, Maintenance, 11/16/22 17:01:00 EDT, [facility], 173.7, cm, 10/23/22 9:44:00 EST, Height, 104.5, [...] injury) Confirmed Active Urinary incontinence Confirmed Active 28266 Vital Signs Most recent to oldest [Reference Range]: 1 Height 173.7 cm (02/04/23 9:59 AM) Oxygen Saturation [94-100 %] 98 % (02/04/23 9:59 AM) Pulse Rate [55-90 bpm] 68 bpm (02/04/23 9:59 AM) Social History Social History Type Response Smoking Status Never (less than 100 in lifetime) entered on: 04/17/21 Sex Patient Care team information Care Team Personnel Name: Annalisa Mishra MD Position: [facility] Physician - Primary Care Member Role: PCP Address: Address: [address] [place] [address] Name: Oneyda Swift RN Position: S RN Member Role: Primary Care Nurse Name: Shelley Cowan RN Position: [facility] RN Supv Member Role: Primary Care Nurse Name: Brenda Cabrera RN Position: [facility] SN RN Member Role: Primary Care Nurse Name: Rosa Ngo RN Position: S RN Member Role: Primary Care Nurse Name: Charli Cosme RN Position: [facility] RN Member Role: Primary Care Nurse Name: Mary Calix RN Position: S RN Member Role: Primary Care Nurse Name: Caryn Tripathi RN Position: S RN Member Role: Primary Care Nurse Name: Roma Baker RN Position: [facility] RN Member Role: Primary Care Nurse Name: Anthony Fowler RN Position: S RN Member Role: Primary Care Nurse Name: Janina Michele Position: S RN Member Role: Primary Care Nurse Name: Denise Ibarra RN Position: S RN Member Role: Primary Care Nurse Name: Tiburcio Hercules RN Position: [facility] RN Supv Member Role: Primary Care Nurse Name: Brenna Collazo RN Position: [facility] RN Member Role: Primary Care Nurse Name: Susan Sheikh RN Position: S RN Member Role: Primary Care Nurse Name: Yesy Adams Position: S RN Member Role: Primary Care Nurse Name: Delores Garcia RN Position: [facility] RN Member Role: Primary Care Nurse Name: Susan Bates RN Position: [facility] RN Member Role: Primary Care Nurse Name: Suzanna Kim RN Position: [facility] RN Member Role: Primary Care Nurse Name: Chandrika Luis RN Position: [facility] RN Member Role: Primary Care Nurse Name: Jessica Fulton RN Position: [facility] PCO w/OE and EZ Script Member Role: Primary Care Nurse Name: Eda Luna RN Position: [facility] RN Member Role: Primary Care Nurse Care Team Related Persons Name: ELI KIM Address: [address] [address]
--- OUTSIDE RECORDS SUMMARY | 2024-04-02 06:17 | XMS_ITS | Continuity of Care Document ---
Author Organization [facility] Steve lt Address [address] [place] [address]- Care Team Providers Care Relationship Specialist Name Role Phone Annalisa Mishra MD Primary Care Physician Encounter [facility] [place] Date(s): 01/26/23 - 02/25/23 [facility] Adult [address] [place] [address]- Allergies, Adverse Reactions, Alerts Substance Reaction Severity [...] mL, 0 Refills, Maintenance, 01/15/23 13:28:00 EDT, [facility]/pharmacy #[id number], Partial fill upon patient request if the prescription is for a schedule II opioid drug., Drink 240mL every 15 min... Start Date: 01/15/23 Status: Ordered Keppra 500 mg oral tablet 2 tablet = 1,000 mg, By Mouth, 2 times a day, # 120 tablet, 3 Refills, Maintenance, 02/27/22 12:47:00 EDT, Tablet, [facility]/pharmacy #[id number], Partial fill upon patient request if the prescription is for a schedule II opioid drug., 173.7, cm, 01/31/22 9:57:00... Start Date: 02/27/22 Status: Ordered labetalol 200 mg oral tablet 2 tablet, By Mouth, Every 8 hours, # 540 tablet, 1 Refills, Maintenance, 09/30/22 15:25:00 EST, [facility], 173.7, cm, 07/28/22 13:45:00 EST, Height, 104.5, [...] Refills, Maintenance, 11/16/22 17:01:00 EDT, [facility], 173.7, cm, 10/23/22 9:44:00 EST, Height, 104.5, [...] injury) Confirmed Active Urinary incontinence Confirmed Active 78087 Social History Social History Type Response Smoking Status Never (less than 100 in lifetime) entered on: 04/17/21 Sex Patient Care team information Care Team Personnel Name: Annalisa Mishra MD Position: [facility] Physician - Primary Care Member Role: PCP Address: Address: [address] [place] [address] Name: Oneyda Swift RN Position: [facility] RN Member Role: Primary Care Nurse Name: Shelley Cowan RN Position: [facility] RN Supv Member Role: Primary Care Nurse Name: Brenda Cabrera RN Position: [facility] SN RN Member Role: Primary Care Nurse Name: Rosa Ngo RN Position: [facility] RN Member Role: Primary Care Nurse Name: Charli Cosme RN Position: [facility] RN Member Role: Primary Care Nurse Name: Mary Calix RN Position: [facility] RN Member Role: Primary Care Nurse Name: Caryn Tripathi RN Position: [facility] RN Member Role: Primary Care Nurse Name: Roma Baker RN Position: [facility] RN Member Role: Primary Care Nurse Name: Anthony Fowler RN Position: [facility] RN Member Role: Primary Care Nurse Name: Janina Michele Position: [facility] RN Member Role: Primary Care Nurse Name: Denise Ibarra RN Position: [facility] RN Member Role: Primary Care Nurse Name: Tiburcio Hercules RN Position: [facility] RN Supv Member Role: Primary Care Nurse Name: Brenna Collazo RN Position: [facility] RN Member Role: Primary Care Nurse Name: Susan Sheikh RN Position: [facility] RN Member Role: Primary Care Nurse Name: Yesy Adams Position: [facility] RN Member Role: Primary Care Nurse Name: Delores Garcia RN Position: [facility] RN Member Role: Primary Care Nurse Name: Susan Bates RN Position: [facility] RN Member Role: Primary Care Nurse Name: Suzanna Kim RN Position: [facility] RN Member Role: Primary Care Nurse Name: Chandrika Luis RN Position: [facility] RN Member Role: Primary Care Nurse Name: Jessica Fulton RN Position: [facility] PCO w/OE and EZ Script Member Role: Primary Care Nurse Name: Eda Luna RN Position: [facility] RN Member Role: Primary Care Nurse Care Team Related Persons Name: ELI KIM Address: [address] [address]
--- OUTSIDE RECORDS SUMMARY | 2024-04-02 06:17 | XMS_ITS | Continuity of Care Document ---
Author Organization [facility] Address [address] [place] [address]- Care Team Providers Care Infrastructure Tech Name Role Phone Annalisa Mishra MD Primary Care Physician Encounter [facility] Date(s): 01/26/23 - 02/25/23 [facility] [address] [place] [address]- Allergies, Adverse Reactions, Alerts Substance Reaction Severity [...] mL, 0 Refills, Maintenance, 01/15/23 13:28:00 EDT, [facility]/pharmacy #[id number], Partial fill upon patient request if the prescription is for a schedule II opioid drug., Drink 240mL every 15 min... Start Date: 01/15/23 Status: Ordered Keppra 500 mg oral tablet 2 tablet = 1,000 mg, By Mouth, 2 times a day, # 120 tablet, 3 Refills, Maintenance, 02/27/22 12:47:00 EDT, Tablet, [facility]/pharmacy #[id number], Partial fill upon patient request if the prescription is for a schedule II opioid drug., 173.7, cm, 01/31/22 9:57:00... Start Date: 02/27/22 Status: Ordered labetalol 200 mg oral tablet 2 tablet, By Mouth, Every 8 hours, # 540 tablet, 1 Refills, Maintenance, 09/30/22 15:25:00 EST, [facility], 173.7, cm, 07/28/22 13:45:00 EST, Height, 104.5, [...] Refills, Maintenance, 11/16/22 17:01:00 EDT, [facility], 173.7, cm, 10/23/22 9:44:00 EST, Height, 104.5, [...] injury) Confirmed Active Urinary incontinence Confirmed Active 06689 Social History Social History Type Response Smoking Status Never (less than 100 in lifetime) entered on: 04/17/21 Sex Patient Care team information Care Team Personnel Name: Annalisa Mishra MD Position: [facility] Physician - Primary Care Member Role: PCP Address: Address: [address] [place] [address] Name: Oneyda Swift RN Position: [facility] RN Member Role: Primary Care Nurse Name: Shelley Cowan RN Position: [facility] RN Supv Member Role: Primary Care Nurse Name: Brenda Cabrera RN Position: [facility] SN RN Member Role: Primary Care Nurse Name: Rosa Ngo RN Position: [facility] RN Member Role: Primary Care Nurse Name: Charli Cosme RN Position: [facility] RN Member Role: Primary Care Nurse Name: Mary Calix RN Position: [facility] RN Member Role: Primary Care Nurse Name: Caryn Tripathi RN Position: [facility] RN Member Role: Primary Care Nurse Name: Roma Baker RN Position: [facility] RN Member Role: Primary Care Nurse Name: Anthony Fowler RN Position: [facility] RN Member Role: Primary Care Nurse Name: Janina Michele Position: [facility] RN Member Role: Primary Care Nurse Name: Denise Ibarra RN Position: [facility] RN Member Role: Primary Care Nurse Name: Tiburcio Hercules RN Position: [facility] RN Supv Member Role: Primary Care Nurse Name: Brenna Collazo RN Position: [facility] RN Member Role: Primary Care Nurse Name: Susan Sheikh RN Position: [facility] RN Member Role: Primary Care Nurse Name: Yesy Adams Position: [facility] RN Member Role: Primary Care Nurse Name: Delores Garcia RN Position: [facility] RN Member Role: Primary Care Nurse Name: Susan Bates RN Position: [facility] RN Member Role: Primary Care Nurse Name: uSzanna Kim RN Position: [facility] RN Member Role: Primary Care Nurse Name: Chandrika Luis RN Position: [facility] RN Member Role: Primary Care Nurse Name: Jessica Fulton RN Position: [facility] PCO w/OE and EZ Script Member Role: Primary Care Nurse Name: Eda Luna RN Position: [facility] RN Member Role: Primary Care Nurse Care Team Related Persons Name: ELI KIM Address: [address] [address]
--- OUTSIDE RECORDS SUMMARY | 2024-04-02 06:17 | XMS_ITS | Continuity of Care Document ---
Author Organization [facility] Address [address] [place] [address]- Care Team Providers Care Senior Program Planner Name Role Phone Annalisa Mishra MD Primary Care Physician [place] [facility] [place] 08/[place]/23 [facility] [address] [place] [address]- Attending Physician: Annalisa Mishra MD Allergies, Adverse [...] 1 Refills, Maintenance, 06/04/23 12:05:00 [facility]T, [facility], 178, cm, 06/03/23 13:07:00 EDT, Height, 104.4, [...] Refills, Maintenance, 05/20/22 10:20:00 EDT, Tablet, [facility]/pharmacy #[id number], Partial fill upon patient request if the prescription is for a schedule II opioid dr... Start Date: 05/20/22 Status: Ordered omeprazole 20 mg oral delayed release tablet 1 tablet, By Mouth, Daily, # 30 tablet, 1 Refills, Maintenance, 11/16/22 17:01:00 EDT, [facility], 173.7, cm, 10/23/22 9:44:00 EST, Height, 104.5, kg, 04/01/21 6:08:00 EDT, Dry Weight Start Date: 11/16/22 Status: Ordered RisperDAL 0.25 mg oral tablet 0.25 mg, 1, tablet, By Mouth, 2 times a day, # 60 tablet, Refills 2, Tot. Refills 2, Maintenance, 07/18/21 13:36:00 EST, Route to Pharmacy Electronically, [facility]/pharmacy #[id number], Partial fill upon patient request if the prescription is for a schedule II o... Start Date: 07/18/21 Status: Ordered sertraline 100 mg oral tablet 1 tablet = 100 mg, By Mouth, Daily, # 90 tablet, 3 Refills, Maintenance, 04/23/21 16:47:00 EDT, Tablet, [facility]/pharmacy #[id number], Partial fill upon patient request if the prescription is for a schedule II opioid drug., 173.7, cm, 04/23/21 14:42:00 EDT, [facility]. Start Date: 04/23/21 Status: Ordered Problem List [...] injury) Confirmed Active Urinary incontinence Confirmed Active 06287 Social History Social History Type Response Smoking Status Never (less than 100 in lifetime) entered on: 04/17/21 Sex Patient Care team information Care Team Personnel Name: Annalisa Mishra MD Position: [facility] Physician - Primary Care Member Role: PCP Address: Address: [address] [place] [address] Name: Oneyda Swift RN Position: [facility] ED RN W/OE and Tasks Member Role: Primary Care Nurse Name: Shelley Cowan RN Position: [facility] RN Supv Member Role: Primary Care Nurse Name: Brenda Cabrera RN Position: [facility] SN RN Member Role: Primary Care Nurse Name: Rosa Ngo RN Position: [facility] RN Member Role: Primary Care Nurse Name: Charli Cosme RN Position: [facility] RN Member Role: Primary Care Nurse Name: Mary Calix RN Position: [facility] RN Member Role: Primary Care Nurse Name: Caryn Tripathi RN Position: [facility] RN Member Role: Primary Care Nurse Name: Roma Baker RN Position: [facility] RN Member Role: Primary Care Nurse Name: Anthony Fowler RN Position: [facility] RN Member Role: Primary Care Nurse Name: Janina Michele Position: [facility] RN Member Role: Primary Care Nurse Name: Denise Ibarra RN Position: [facility] RN Member Role: Primary Care Nurse Name: Tiburcio Hercules RN Position: [facility] RN Supv Member Role: Primary Care Nurse Name: Brenna Collazo RN Position: [facility] RN Member Role: Primary Care Nurse Name: Susan Sheikh RN Position: [facility] RN Member Role: Primary Care Nurse Name: Yesy Adams Position: [facility] RN Member Role: Primary Care Nurse Name: Delores Garcia RN Position: [facility] RN Member Role: Primary Care Nurse Name: Susan Bates RN Position: [facility] RN Member Role: Primary Care Nurse Name: Szuanna Kim RN Position: [facility] RN Member Role: Primary Care Nurse Name: Chandrika Luis RN Position: [facility] RN Member Role: Primary Care Nurse Name: Eda Luna RN Position: [facility] RN Member Role: Primary Care Nurse Care Team Related Persons Name: ELI KIM Address: [address] [address]
--- OUTSIDE RECORDS SUMMARY | 2024-04-02 06:17 | XMS_ITS | Continuity of Care Document ---
Author Organization [facility] Address [address] [place] [address]- Care Team Providers Care Swatcher Name Role Phone Annalisa Mishra MD Primary Care Physician Encounter [facility] [place] Date(s): 09/23/23 - 10/23/23 [facility] [address] [place], [place] [address] Allergies, Adverse Reactions, Alerts Substance Reaction Severity [...] tablet, 0 Refills, Maintenance, 06/29/23 17:01:00 EDT, [facility]/pharmacy #[id number], 178, cm, 06/03/23 13:07:00 EDT, Height, 104.4, kg, 04/27/23 7:15:00 EDT, Dry Weight Start Date: 06/29/23 Status: Ordered clonazePAM 0.5 mg oral tablet 1 tablet = 0.5 mg, By Mouth, 3 times a day, PRN Anxiety, # 84 tablet, 0 Refills, Maintenance, 09/24/23 15:05:00 EST, [facility]/pharmacy #[id number], 178, cm, 09/10/23 9:22:00 EST, Height, [...] capsule, 1 Refills, Maintenance, 09/17/23 12:02:00 EST, [facility], 178, cm, 09/10/23 9:22:00 EST, Height, 104.4, [...] 1 Refills, Maintenance, 09/17/23 18:52:00 EST, [facility], 178, cm, 09/10/23 9:22:00 EST, Height, 104.4, kg, 04/27/23 7:15:00 EDT, Dry Weight Start Date: 09/17/23 Status: Ordered levETIRAcetam 500 mg oral tablet 2 tablet, By Mouth, 2 times a day, # 360 tablet, 1 Refills, Maintenance, 06/04/23 12:05:00 EDT, [facility], 178, cm, 06/03/23 13:07:00 EDT, Height, 104.4, [...] 3 Refills, Maintenance, 05/20/22 10:20:00 EDT, Tablet, [facility]/pharmacy #[id number], Partial fill upon patient request if the prescription is for a schedule II opioid dr... Start Date: 05/20/22 Status: Ordered omeprazole 20 mg oral delayed release tablet 1 tablet, By Mouth, Daily, # 30 tablet, 1 Refills, Maintenance, 11/16/22 17:01:00 EDT, [facility], 173.7, cm, 10/23/22 9:44:00 EST, Height, 104.5, kg, 04/01/21 6:08:00 EDT, Dry Weight Start Date: 11/16/22 Status: Ordered RisperDAL 0.25 mg oral tablet 0.25 mg, 1, tablet, By Mouth, 2 times a day, # 60 tablet, Refills 2, Tot. Refills 2, Maintenance, 07/18/21 13:36:00 EST, Route to Pharmacy Electronically, [facility]/pharmacy #[id number], Partial fill upon patient request if the prescription is for a schedule II o... Start Date: 07/18/21 Status: Ordered sertraline 100 mg oral tablet 1 tablet = 100 mg, By Mouth, Daily, # 90 tablet, 3 Refills, Maintenance, 04/23/21 16:47:00 EDT, Tablet, [facility]/pharmacy #[id number], Partial fill upon patient request if the [...] injury) Confirmed Active Urinary incontinence Confirmed Active 80742 Social History Social History Type Response Smoking Status Never (less than 100 in lifetime) entered on: 04/17/21 Sex Patient Care team information Care Team Personnel Name: Annalisa Mishra MD Position: [facility] Physician - Primary Care Member Role: PCP Address: Address: [address] [place] [address] Name: Oneyda Swift RN Position: [facility] ED RN W/OE and Tasks Member Role: Primary Care Nurse Name: Shelley Cowan RN Position: [facility] RN Supv Member Role: Primary Care Nurse Name: Brenda Cabrera RN Position: [facility] SN RN Member Role: Primary Care Nurse Name: Rosa Ngo RN Position: [facility] RN Member Role: Primary Care Nurse Name: Mary Calix RN Position: [facility] RN Member Role: Primary Care Nurse Name: Caryn Tripathi RN Position: [facility] RN Member Role: Primary Care Nurse Name: Roma Baker RN Position: [facility] RN Member Role: Primary Care Nurse Name: Anthony Fowler RN Position: [facility] RN Member Role: Primary Care Nurse Name: Janina Michele Position: [facility] RN Member Role: Primary Care Nurse Name: Denise Ibarra RN Position: [facility] RN Member Role: Primary Care Nurse Name: Tiburcio Hercules RN Position: [facility] RN Max Member Role: Primary Care Nurse Name: Brenna Collazo RN Position: [facility] RN Member Role: Primary Care Nurse Name: Susan Sheikh RN Position: [facility] RN Member Role: Primary Care Nurse Name: Yesy Adams Position: [facility] RN Member Role: Primary Care Nurse Name: Delores Garcia RN Position: [facility] RN Member Role: Primary Care Nurse Name: Suzanna Kim RN Position: [facility] RN Member Role: Primary Care Nurse Name: Chandrika Luis RN Position: [facility] RN Member Role: Primary Care Nurse Name: Eda Luna RN Position: [facility] RN Member Role: Primary Care Nurse Care Team Related Persons Name: ELI KIM Address: [address] [address] Name: JUAN KIM
--- OUTSIDE RECORDS SUMMARY | 2024-04-02 06:17 | XMS_ITS | Continuity of Care Document ---
Author Organization [facility] Address [address] [place] [address]- Care Team Providers Care Clinic Office Coordinator Name Role Phone Annalisa Mishra MD Primary Care Physician Encounter [facility] [place] Date(s): 12/10/23 - 01/09/24 [facility] [address] [place] [address]- Allergies, Adverse Reactions, Alerts Substance Reaction Severity [...] schedule II opioid drug., 3.5 Gm By Adan.. Start Date: 06/03/23 Stop Date: 09/01/23 Status: Ordered clonazePAM 0.5 mg oral tablet 1 tablet, By Mouth, 3 times a day, # 84 tablet, 0 Refills, Maintenance, 11/06/23 16:13:00 EST, [facility]/pharmacy #[id number], 178, cm, 10/23/23 12:39:00 EST, Height, 104.4, kg, 04/27/23 7:15:00 EDT, Dry Weight Start Date: 11/06/23 Status: Ordered clonazePAM 0.5 mg oral tablet 1 tablet = 0.5 mg, By Mouth, 3 times a day, PRN Anxiety, # 84 tablet, 0 Refills, Maintenance, 12/11/23 13:09:00 EDT, [facility]/pharmacy #[id number], 178, cm, 10/23/23 12:39:00 EST, Height, 104.4, kg, 04/27/23 7:15:00 EDT, Dry Weight Start Date: 12/11/23 Status: Ordered D3 By Mouth, Daily, 0 Refills, Maintenance, 07/28/22 13:48:00 EST, Partial fill upon patient request if the prescription is for a schedule II opioid drug. Start Date: 07/28/22 Status: Ordered dicyclomine 10 mg oral capsule 1 capsule, By Mouth, 4 times a day, PRN NEEDED FOR IBS CRAMPING, # 360 capsule, 1 Refills, Maintenance, 09/17/23 12:02:00 EST, [facility] 76[facility], 178, cm, 09/10/23 9:22:00 EST, Height, 104.4, kg, 04/27/23 7:15:00 EDT, Dry Weight Start Date: 09/17/23 Status: Ordered Eliquis 5 mg oral tablet 1 tablet = 5 mg, By Mouth, 2 times a day, # 60 tablet, 0 Refills, Maintenance, 11/11/23 17:22:00 EST, Tablet, [facility]/pharmacy #[id number], Partial fill upon patient request if the prescription is for a schedule II opioid drug., 178, cm, 10/23/23 12:39:00 EST,... Start Date: 11/11/23 Status: Ordered labetalol 200 mg oral tablet 2 tablet, By Mouth, Every 8 hours, # 540 tablet, 1 Refills, Maintenance, 09/17/23 18:52:00 EST, [facility], 178, cm, 09/10/23 9:22:00 EST, Height, 104.4, kg, 04/27/23 7:15:00 EDT, Dry Weight Start Date: 09/17/23 Status: Ordered levETIRAcetam 500 mg oral tablet 2 tablet, By Mouth, 2 times a day, # 360 tablet, 1 Refills, Maintenance, 12/29/23 12:04:00 EDT, [facility]/pharmacy #[id number], 178, cm, 10/23/23 12:39:00 EST, Height, 104.4, kg, 04/27/23 7:15:00 EDT, Dry Weight Start Date: 12/29/23 Status: Ordered Multivitamin Tablet 1 tablet, Nasogastric [...] 3 Refills, Maintenance, 05/20/22 10:20:00 EDT, Tablet, [facility]/pharmacy #[id number], Partial fill upon patient request if the prescription is for a schedule II opioid drTimo. Start Date: 05/20/22 Status: Ordered omeprazole 20 mg oral delayed release tablet 1 tablet, By Mouth, Daily, # 30 tablet, 1 Refills, Maintenance, 11/16/22 17:01:00 EDT, [facility], 173.7, cm, 10/23/22 9:44:00 EST, Height, 104.5, kg, 04/01/21 6:08:00 EDT, Dry Weight Start Date: 11/16/22 Status: Ordered RisperDAL 0.25 mg oral tablet 0.25 mg, 1, tablet, By Mouth, 2 times a day, # 60 tablet, Refills 2, Tot. Refills 2, Maintenance, 07/18/21 13:36:00 EST, Route to Pharmacy Electronically, [facility]/pharmacy #[id number], Partial fill upon patient request if the prescription is for a schedule II o... Start Date: 07/18/21 Status: Ordered sertraline 100 mg oral tablet 1 tablet = 100 mg, By Mouth, Daily, # 90 tablet, 3 Refills, Maintenance, 04/23/21 16:47:00 EDT, Tablet, [facility]/pharmacy #[id number], Partial fill upon patient [...] injury) Confirmed Active Urinary incontinence Confirmed Active 75780 Social History Social History Type Response Smoking Status Never (less than 100 in lifetime) entered on: 04/17/21 Sex Patient Care team information Care Team Personnel Name: Annalisa Mishra MD Position: [facility] Physician - Primary Care Member Role: PCP Address: Address: [address] [place] [address] Name: Oneyda Swift RN Position: [facility] ED RN W/OE and Tasks Member Role: Primary Care Nurse Name: Shelley Cowan RN Position: [facility] RN Supv Member Role: Primary Care Nurse Name: Mary Cordoba RN Position: [facility] RN Member Role: Primary Care Nurse Name: Brenda Cabrera RN Position: [facility] RN Member Role: Primary Care Nurse Name: Rosa Ngo RN Position: [facility] RN Member Role: Primary Care Nurse Name: Caryn Tripathi RN Position: [facility] RN Member Role: Primary Care Nurse Name: Roma Baker RN Position: [facility] RN Member Role: Primary Care Nurse Name: Anthony Fowler RN Position: [facility] RN Member Role: Primary Care Nurse Name: Janina Michele Position: [facility] RN Member Role: Primary Care Nurse Name: Denise Ibarra RN Position: [facility] RN Member Role: Primary Care Nurse Name: Tiburcio Hercules RN Position: [facility] RN Max Member Role: Primary Care Nurse Name: Brenna Collazo RN Position: [facility] RN Member Role: Primary Care Nurse Name: Susan Sheikh RN Position: [facility] RN Member Role: Primary Care Nurse Name: Yesy Adams Position: [facility] RN Member Role: Primary Care Nurse Name: Delores Garcia RN Position: [facility] RN Member Role: Primary Care Nurse Name: Suzanna Kim RN Position: [facility] RN Member Role: Primary Care Nurse Name: Chandrika Luis RN Position: [facility] RN Member Role: Primary Care Nurse Name: Eda Luna RN Position: [facility] RN Member Role: Primary Care Nurse Care Team Related Persons Name: ELI KIM Address: [address] [place] [address] Name: JUAN KIM
--- OUTSIDE RECORDS SUMMARY | 2024-04-02 06:17 | XMS_ITS | Continuity of Care Document ---
Author Organization [facility] Address [address] [place] [address]- Care Team Providers Care Jewel Bearing Turner Name Role Phone Annalisa Mishra MD Primary Care Physician Encounter [facility] [place] Date(s): 01/28/23 - 02/27/23 [facility] [address] [place] [address]- Attending Physician: AdmSkinny stinson Admitting Physician: Admtr, Ar8 Referring Physician: Admtr, Ar8 Allergies, Adverse Reactions, Alerts Substance Reaction Severity [...] mL, 0 Refills, Maintenance, 01/15/23 13:28:00 EDT, [id number], Partial fill upon patient request if the prescription is for a schedule II opioid drug., Drink 240mL every 15 min... Start Date: 01/15/23 Status: Ordered Keppra 500 mg oral tablet 2 tablet = 1,000 mg, By Mouth, 2 times a day, # 120 tablet, 3 Refills, Maintenance, 02/27/22 12:47:00 EDT, Tablet, [facility]/pharmacy #[id number], Partial fill upon patient request if the prescription is for a schedule II opioid drug., 173.7, cm, 01/31/22 9:57:00... Start Date: 02/27/22 Status: Ordered labetalol 200 mg oral tablet 2 tablet, By Mouth, Every 8 hours, # 540 tablet, 1 Refills, Maintenance, 09/30/22 15:25:00 EST, [id number], 173.7, cm, 07/28/22 13:45:00 EST, Height, 104.5, [...] prescription is for a schedule II opioid drMarcello.. Start Date: 05/20/22 Status: Ordered omeprazole 20 mg oral delayed release tablet 1 tablet, By Mouth, Daily, # 30 tablet, 1 Refills, Maintenance, 11/16/22 17:01:00 EDT, [facility], 173.7, cm, 10/23/22 9:44:00 EST, Height, 104.5, [...] injury) Confirmed Active Urinary incontinence Confirmed Active 97858 Social History Social History Type Response Smoking Status Never (less than 100 in lifetime) entered on: 04/17/21 Sex Hospital Consult note * Event Display: Inpatient Consult Note, Non- Authored Date: Patient Care team information Care Team Personnel Name: Annalisa Mishra MD Position: [facility] Physician - Primary Care Member Role: PCP Address: Address: [address] [place] [address] Name: Oneyda Swift RN Position: [facility] RN [...] Team Related Persons Name: ELI KIM Address: [address] [address]
--- OUTSIDE RECORDS SUMMARY | 2024-04-02 06:17 | XMS_ITS | Continuity of Care Document ---
Author Organization [facility] Address [address] [place] [address]- Care Team Providers Care Private Duty Lpn Name Role Phone Annalisa Mishra MD Primary Care Physician Encounter [facility] [place] Date(s): 02/15/24 - 03/16/24 [facility] [address] [place] [address]- Allergies, Adverse Reactions, Alerts Substance Reaction Severity [...] tablet, By Mouth, 3 times a day, PRN NEEDED FOR ANXIETY, # 84 tablet, 0 Refills, Maintenance, 02/15/24 12:40:00 EDT, [facility]/pharmacy #[id number], 178, cm, 10/23/23 12:39:00 EST, Height, 104.4, kg, 04/27/23 7:15:00 EDT, Dry Weight Start Date: 02/15/24 Status: Ordered D3 By Mouth, Daily, 0 Refills, Maintenance, 07/28/22 13:48:00 EST, Partial fill upon patient request if the prescription is for a schedule II opioid drug. Start Date: 07/28/22 Status: Ordered dicyclomine 10 mg oral capsule 1 capsule, By Mouth, 4 times a day, PRN NEEDED FOR IBS CRAMPING, # 360 capsule, 1 Refills, Maintenance, 09/17/23 12:02:00 EST, [facility], 178, cm, 09/10/23 9:22:00 EST, Height, 104.4, kg, 04/27/23 7:15:00 EDT, Dry Weight Start Date: 09/17/23 Status: Ordered Eliquis 5 mg oral tablet 1 tablet = 5 mg, By Mouth, 2 times a day, # 60 tablet, 0 Refills, Maintenance, 11/11/23 17:22:00 EST, Tablet, [facility]/pharmacy #[id number], Partial fill upon patient request if the prescription is for a schedule II opioid drug., 178, cm, 10/23/23 12:39:00 EST,... Start Date: 11/11/23 Status: Ordered labetalol 200 mg oral tablet 2 tablet, By Mouth, Every 8 hours, # 540 tablet, 1 Refills, Maintenance, 09/17/23 18:52:00 EST, [facility], 178, cm, 09/10/23 9:22:00 EST, Height, 104.4, kg, 04/27/23 7:15:00 EDT, Dry Weight Start Date: 09/17/23 Status: Ordered levETIRAcetam 500 mg oral tablet 2 tablet, By Mouth, 2 times a day, # 360 tablet, 1 Refills, Maintenance, 12/29/23 12:04:00 EDT, [facility]/pharmacy #[id number], 178, cm, 10/23/23 12:39:00 EST, Height, [...] 3 Refills, Maintenance, 05/20/22 10:20:00 EDT, Tablet, [facility]/pharmacy #[id number], Partial fill upon patient request if the prescription is for a schedule II opioid dr... Start Date: 05/20/22 Status: Ordered omeprazole 20 mg oral delayed release tablet 1 tablet, By Mouth, Daily, # 30 tablet, 1 Refills, Maintenance, 11/16/22 17:01:00 EDT, [facility], 173.7, cm, 10/23/22 9:44:00 EST, Height, 104.5, kg, 04/01/21 6:08:00 EDT, Dry Weight Start Date: 11/16/22 Status: Ordered RisperDAL 0.25 mg oral tablet 0.25 mg, 1, tablet, By Mouth, 2 times a day, # 60 tablet, Refills 2, Tot. Refills 2, Maintenance, 07/18/21 13:36:00 EST, Route to Pharmacy Electronically, [facility]/pharmacy #[id number], Partial fill upon patient request if the prescription is for a schedule II o... Start Date: 07/18/21 Status: Ordered sertraline 100 mg oral tablet 1 tablet = 100 mg, By Mouth, Daily, # 90 tablet, 3 Refills, Maintenance, 04/23/21 16:47:00 EDT, Tablet, [facility]/pharmacy #[id number], Partial fill upon patient request if the prescription is for a schedule II opioid drug., 173.7, cm, 04/23/21 14:42:00 THOMAS Ramiroreese Start Date: 04/23/21 Status: Ordered Problem List [...] injury) Confirmed Active Urinary incontinence Confirmed Active 18380 Social History Social History Type Response Smoking Status Never (less than 100 in lifetime) entered on: 04/17/21 Sex Patient Care team information Care Team Personnel Name: Annalisa Mishra MD Position: [facility] Physician - Primary Care Member Role: PCP Address: Address: [address] [place] [address] Name: Oneyda Swift RN Position: [facility] ED RN W/OE and Tasks Member Role: Primary Care Nurse Name: Shelley Cowan RN Position: [facility] RN Supv Member Role: Primary Care Nurse Name: Mary Cordoba RN Position: [facility] RN Member Role: Primary Care Nurse Name: Brenda Cabrera RN Position: [facility] SN RN Member Role: Primary Care Nurse Name: Rosa Ngo RN Position: [facility] RN Member Role: Primary Care Nurse Name: Caryn Tripathi RN Position: [facility] RN Member Role: Primary Care Nurse Name: Roma Baker RN Position: [facility] RN Member Role: Primary Care Nurse Name: Anthony Fowler RN Position: [facility] RN Member Role: Primary Care Nurse Name: Janina Michele RN Position: [facility] RN Member Role: Primary Care Nurse Name: Denise Ibarra RN Position: [facility] RN Member Role: Primary Care Nurse Name: Tiburcio Hercules RN Position: [facility] RN Supv Member Role: Primary Care Nurse Name: Brenna Collazo RN Position: [facility] RN Member Role: Primary Care Nurse Name: Susan Sheikh RN Position: [facility] RN Member Role: Primary Care Nurse Name: Yesy Adams RN Position: S RN Member Role: Primary Care Nurse Name: Delores Garcia RN Position: [facility] RN Member Role: Primary Care Nurse Name: Suzanna Kim RN Position: [facility] RN Member Role: Primary Care Nurse Name: Chandrika Luis RN Position: [facility] RN Member Role: Primary Care Nurse Name: Eda Luna RN Position: [facility] RN Member Role: Primary Care Nurse Care Team Related Persons Name: ELI KIM Address: [address] [address] Name: JUAN KIM
--- OUTSIDE RECORDS SUMMARY | 2024-04-02 06:17 | XMS_ITS | Continuity of Care Document ---
Author Organization [facility] Address [address] [place] [address]- Care Team Providers Care Medical Pathologist Name Role Phone Annalisa Mishra MD Primary Care Physician Encounter [facility] [place] Date(s): 03/05/23 - 04/04/23 [facility] [address] [place] [address]- Allergies, Adverse Reactions, Alerts Substance Reaction Severity [...] 3 Refills, Maintenance, 07/18/21 13:34:00 EST, Powder, [facility]/pharmacy #[id number], Partial fill upon patient request if the prescriptionis for a schedule II opioid drug., 2 puffs Inhalati... Start Date: 07/18/21 Status: Ordered clonazePAM 0.5 mg oral tablet 1 tablet, By Mouth, 3 times a day, # 84 tablet, 0 Refills, Maintenance, 03/27/23 12:52:00 EDT, [id number], 173.7, cm, 03/11/23 10:57:00 EDT, Height, 109.3, kg, 03/02/23 11:42:00 EDT, Dry Weight Start Date: 03/27/23 Status: Ordered clonazePAM 0.5 mg oral tablet See Instructions, TAKE 1 TABLET BY MOUTH 3 TIMES DAILY X28 DAYS, # 84 tablet, 0 Refills, Maintenance, 03/27/23 12:53:00 EDT, [id number], 173.7, cm, 03/11/23 10:57:00 EDT, Height, 109.3, kg, 03/02/23 11:42:00 EDT, Dry Weight Start Date: 03/27/23 Status: Ordered D3 By Mouth, Daily, 0 [...] 1 Refills, Maintenance, 09/30/22 15:25:00 EST, [facility], 173.7, cm, 07/28/22 13:45:00 EST, Height, 104.5, [...] Refills, Maintenance, 11/16/22 17:01:00 EDT, [facility], 173.7, cm, 10/23/22 9:44:00 EST, Height, 104.5, [...] injury) Confirmed Active Urinary incontinence Confirmed Active 53963 Social History Social History Type Response Smoking Status Never (less than 100 in lifetime) entered on: 04/17/21 Sex Patient Care team information Care Team Personnel Name: Annalisa Mishra MD Position: [facility] Physician - Primary Care Member Role: PCP Address: Address: [address] [place] [address] Name: Oneyda Swift RN Position: S RN Member Role: Primary Care Nurse Name: Shelley Cowan RN Position: [facility] RN Supv Member Role: Primary Care Nurse Name: Brenda Cabrera RN Position: [facility] SN RN Member Role: Primary Care Nurse Name: Rosa Ngo RN Position: [facility] RN Member Role: Primary Care Nurse Name: Charli Cosme RN Position: [facility] RN Member Role: Primary Care Nurse Name: Mary Calix RN Position: [facility] RN Member Role: Primary Care Nurse Name: Caryn Tripathi RN Position: [facility] RN Member Role: Primary Care Nurse Name: Roma Baker RN Position: [facility] RN Member Role: Primary Care Nurse Name: Anthony Fowler RN Position: [facility] RN Member Role: Primary Care Nurse Name: Janina Michele Position: S RN Member Role: Primary Care Nurse Name: Denise Ibarra RN Position: [facility] RN Member Role: Primary Care Nurse Name: Tiburcio Hercules RN Position: [facility] RN Supv Member Role: Primary Care Nurse Name: Brenna Collazo RN Position: [facility] RN Member Role: Primary Care Nurse Name: Susan Sheikh RN Position: [facility] RN Member Role: Primary Care Nurse Name: Yesy Adams Position: S RN Member Role: Primary Care Nurse Name: Delores Garcia RN Position: [facility] RN Member Role: Primary Care Nurse Name: Susan Bates RN Position: [facility] RN Member Role: Primary Care Nurse Name: Suzanna Kim RN Position: [facility] RN Member Role: Primary Care Nurse Name: Chandrika Luis RN Position: S RN Member Role: Primary Care Nurse Name: Jessica Fulton RN Position: [facility] PCO w/OE and EZ Script Member Role: Primary Care Nurse Name: Eda Luna RN Position: [facility] RN Member Role: Primary Care Nurse Care Team Related Persons Name: ELI KIM Address: [address] [address]
--- OUTSIDE RECORDS SUMMARY | 2024-04-02 06:18 | XMS_ITS | Continuity of Care Document ---
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 Name Role Phone Annalisa Mishra MD Primary Care Physician Encounter [facility] [place] Date(s): 01/12/24 - 02/11/24 [facility] [address] [place] [address]- Allergies, Adverse Reactions, Alerts Substance Reaction Severity [...] Anxiety, # 84 tablet, 0 Refills, Maintenance, 01/12/24 17:31:00 EDT, [facility]/pharmacy #[id number], 178, cm, 10/23/23 12:39:00 EST, Height, 104.4, kg, 04/27/23 7:15:00 EDT, Dry Weight Start Date: 01/12/24 Status: Ordered clonazePAM 0.5 mg oral tablet See Instructions, TAKE 1 TABLET BY MOUTH THREE TIMES A DAY NEEDED FOR ANXIETY, # 84 tablet, 0 Refills, Maintenance, 01/12/24 17:32:00 EDT, [facility]/pharmacy #[id number], 178, cm, 10/23/23 12:39:00 EST, Height, 104.4, kg, 04/27/23 7:15:00 EDT, Dry Weight Start Date: 01/12/24 Status: Ordered D3 By Mouth, Daily, 0 Refills, Maintenance, 07/28/22 13:48:00 EST, Partial fill upon patient request if the prescription is for a schedule II opioid drug. Start Date: 07/28/22 Status: Ordered dicyclomine 10 mg oral capsule 1 capsule, By Mouth, 4 times a day, PRN NEEDED FOR IBS CRAMPING, # 360 capsule, 1 Refills, Maintenance, 09/17/23 12:02:00 EST, [facility] 57945, 178, cm, 09/10/23 9:22:00 EST, Height, 104.4, kg, 04/27/23 7:15:00 EDT, Dry Weight Start Date: 09/17/23 Status: Ordered Eliquis 5 mg oral tablet 1 tablet = 5 mg, By Mouth, 2 times a day, # 60 tablet, 0 Refills, Maintenance, 11/11/23 17:22:00 EST, Tablet, [facility]/pharmacy #[id number], Partial fill upon patient request if the prescription is for a schedule II opioid drug., 178, cm, 10/23/23 12:39:00 EST,... Start Date: 11/11/23 Status: Ordered labetalol 200 mg oral tablet 2 tablet, By Mouth, Every 8 hours, # 540 tablet, 1 Refills, Maintenance, 09/17/23 18:52:00 EST, [facility], 178, cm, 09/10/23 9:22:00 EST, Height, 104.4, kg, 04/27/23 7:15:00 EDT, Dry Weight Start Date: 09/17/23 Status: Ordered levETIRAcetam 500 mg oral tablet 2 tablet, By Mouth, 2 times a day, # 360 tablet, 1 Refills, Maintenance, 12/29/23 12:04:00 EDT, [facility]/pharmacy #[id number], 178, cm, 10/23/23 12:39:00 EST, [...] 3 Refills, Maintenance, 05/20/22 10:20:00 EDT, Tablet, [facility]/pharmacy #[id number], Partial fill upon patient request if the prescription is for a schedule II opioid dr... Start Date: 05/20/22 Status: Ordered omeprazole 20 mg oral delayed release tablet 1 tablet, By Mouth, Daily, # 30 tablet, 1 Refills, Maintenance, 11/16/22 17:01:00 EDT, [facility], 173.7, cm, 10/23/22 9:44:00 EST, Height, 104.5, kg, 04/01/21 6:08:00 EDT, Dry Weight Start Date: 11/16/22 Status: Ordered RisperDAL 0.25 mg oral tablet 0.25 mg, 1, tablet, By Mouth, 2 times a day, # 60 tablet, Refills 2, Tot. Refills 2, Maintenance, 07/18/21 13:36:00 EST, Route to Pharmacy Electronically, [facility]/pharmacy #[id number], Partial fill upon patient request [...] injury) Confirmed Active Urinary incontinence Confirmed Active 54049 Social History Social History Type Response Smoking Status Never (less than 100 in lifetime) entered on: 04/17/21 Sex Patient Care team information Care Team Personnel Name: Annalisa Mishra MD Position: [facility] Physician - Primary Care Member Role: PCP Address: Address: [address] [place] [address] Name: Oneyda Swift RN Position: [facility] ED RN W/OE and Tasks Member Role: Primary Care Nurse Name: Shelley Cowan RN Position: [facility] RN Supv Member Role: Primary Care Nurse Name: Mary Cordoba RN Position: [facility] RN Member Role: Primary Care Nurse Name: Brenda Cabrera RN Position: [facility] RN Member Role: Primary Care Nurse Name: Rosa Ngo RN Position: [facility] RN Member Role: Primary Care Nurse Name: Caryn Tripathi RN Position: [facility] RN Member Role: Primary Care Nurse Name: Roma Baker RN Position: [facility] RN Member Role: Primary Care Nurse Name: Anthony Fowler RN Position: [facility] RN Member Role: Primary Care Nurse Name: Kathyyuliana Janina Position: [facility] RN Member Role: Primary Care Nurse Name: Denise Ibarra RN Position: [facility] RN Member Role: Primary Care Nurse Name: Tiburcio Hercules RN Position: [facility] RN Supv Member Role: Primary Care Nurse Name: Brenna Collazo RN Position: [facility] RN Member Role: Primary Care Nurse Name: Susan Sheikh RN Position: [facility] RN Member Role: Primary Care Nurse Name: Yesy Adams Position: [facility] RN Member Role: Primary Care Nurse Name: Delores Garcia RN Position: [facility] RN Member Role: Primary Care Nurse Name: Suzanna Kim RN Position: [facility] RN Member Role: Primary Care Nurse Name: Chandrika Luis RN Position: [facility] RN Member Role: Primary Care Nurse Name: Eda Luna RN Position: [facility] RN Member Role: Primary Care Nurse Care Team Related Persons Name: ELI KIM Address: [address] [place] [address] Name: JUAN KIM
--- OUTSIDE RECORDS SUMMARY | 2024-04-02 06:18 | XMS_ITS | Continuity of Care Document ---
Author Organization [facility] em Address Unknown Care Team Providers Care Fiberglass Bonding Machine Tender Name Role Phone Annalisa Mishra MD Primary Care Physician [place] [facility] [place] 03/11/23 - 04/10/23 [facility] Attending Physician: Skinny Urena Admitting Physician: Skinny Urena Referring Physician: Skinny Urena Allergies, Adverse Reactions, Alerts Substance Reaction Severity [...] tablet, 0 Refills, Maintenance, 03/27/23 12:53:00 EDT, [facility]/pharmacy #[id number], 173.7, cm, 03/11/23 10:57:00 EDT, Height, [...] 3 Refills, Maintenance, 02/27/22 12:47:00 EDT, Tablet, [facility]/pharmacy #[id number], Partial fill upon patient request if the prescription is for a schedule II opioid drug., 173.7, cm, 01/31/22 9:57:00... Start Date: 02/27/22 Status: Ordered labetalol 200 mg oral tablet 2 tablet, By Mouth, Every 8 hours, # 540 tablet, 1 Refills, Maintenance, 09/30/22 15:25:00 EST, [facility], 173.7, cm, 07/28/22 13:45:00 EST, Height, 104.5, [...] Refills, Maintenance, 11/16/22 17:01:00 EDT, [facility], 173.7, cm, 10/23/22 9:44:00 EST, Height, 104.5, [...] injury) Confirmed Active Urinary incontinence Confirmed Active 33165 Social History Social History Type Response Smoking Status Never (less than 100 in lifetime) entered on: 04/17/21 Sex Patient Care team information Care Team Personnel Name: Annalisa Mishra MD Position: [facility] Physician - Primary Care Member Role: PCP Address: Address: [address] [place] [address] Name: Oneyda Swift RN Position: [facility] RN Member Role: Primary Care Nurse Name: Shelley Cowan RN Position: [facility] RN Supv Member Role: Primary Care Nurse Name: Brenda Cabrera RN Position: [facility] SN RN Member Role: Primary Care Nurse Name: Rosa Ngo RN Position: S RN Member Role: Primary Care Nurse Name: Charli Cosme RN Position: [facility] RN Member Role: Primary Care Nurse Name: Mary Calix RN Position: [facility] RN Member Role: Primary Care Nurse Name: Caryn Tripathi RN Position: [facility] RN Member Role: Primary Care Nurse Name: Roma Baker RN Position: [facility] RN Member Role: Primary Care Nurse Name: Anthony Fowler RN Position: [facility] RN Member Role: Primary Care Nurse Name: Janina Michele Position: [facility] RN Member Role: Primary Care Nurse Name: Denise Ibarra RN Position: [facility] RN Member Role: Primary Care Nurse Name: Tiburcio Hercules RN Position: [facility] RN Supv Member Role: Primary Care Nurse Name: Brenna Collazo RN Position: [facility] RN Member Role: Primary Care Nurse Name: Susan Sheikh RN Position: [facility] RN Member Role: Primary Care Nurse Name: Yesy Adams Position: [facility] RN Member Role: Primary Care Nurse Name: Delores Garcia RN Position: [facility] RN Member Role: Primary Care Nurse Name: Susan Bates RN Position: [facility] RN Member Role: Primary Care Nurse Name: Suzanna Kim RN Position: [facility] RN Member Role: Primary Care Nurse Name: Chandrika Luis RN Position: [facility] RN Member Role: Primary Care Nurse Name: Jessica Fulton RN Position: [facility] PCO w/OE and EZ Script Member Role: Primary Care Nurse Name: Eda Luna RN Position: [facility] RN Member Role: Primary Care Nurse Care Team Related Persons Name: ELI KIM Address: [address] [address]
--- OUTSIDE RECORDS SUMMARY | 2024-04-02 06:18 | XMS_ITS | Continuity of Care Document ---
Author Organization [facility] Address [address] [place] [address]- Care Team Providers Care [employer] Brusher Name Role Phone Annalisa Mishra MD Primary Care Physician Encounter [facility] Date(s): 12/29/23 - 01/28/24 [facility] [address] [place] [address]- Allergies, Adverse Reactions, Alerts Substance Reaction Severity [...] tablet, 0 Refills, Maintenance, 01/12/24 17:31:00 EDT, [facility]/pharmacy #[id number], 178, cm, 10/23/23 12:39:00 EST, Height, 104.4, kg, 04/27/23 7:15:00 EDT, Dry Weight Start Date: 01/12/24 Status: Ordered clonazePAM 0.5 mg oral tablet See Instructions, TAKE 1 TABLET BY MOUTH THREE TIMES A DAY NEEDED FOR ANXIETY, # 84 tablet, 0 Refills, Maintenance, 01/12/24 17:32:00 EDT, [facility]/pharmacy #[id number], 178, cm, 10/23/23 12:39:00 EST, [...] capsule, 1 Refills, Maintenance, 09/17/23 12:02:00 EST, [id number], 178, cm, 09/10/23 9:22:00 EST, Height, 104.4, kg, 04/27/23 7:15:00 EDT, Dry Weight Start Date: 09/17/23 Status: Ordered Eliquis 5 mg oral tablet 1 tablet = 5 mg, By Mouth, 2 times a day, # 60 tablet, 0 Refills, Maintenance, 11/11/23 17:22:00 EST, Tablet, [facility]/pharmacy #[id number], Partial fill upon patient request if the prescription is for a schedule II opioid drug., 178, cm, 10/23/23 12:39:00 EST,... Start Date: 11/11/23 Status: Ordered labetalol 200 mg oral tablet 2 tablet, By Mouth, Every 8 hours, # 540 tablet, 1 Refills, Maintenance, 09/17/23 18:52:00 EST, [id number], 178, cm, 09/10/23 9:22:00 EST, Height, 104.4, kg, 04/27/23 7:15:00 EDT, Dry Weight Start Date: 09/17/23 Status: Ordered levETIRAcetam 500 mg oral tablet 2 tablet, By Mouth, 2 times a day, # 360 tablet, 1 Refills, Maintenance, 12/29/23 12:04:00 EDT, [facility]/pharmacy #[id number], 178, cm, 10/23/23 12:39:00 EST, [...] Refills, Maintenance, 05/20/22 10:20:00 EDT, Tablet, [facility]/pharmacy #[id number], Partial fill upon patient request if the prescription is for a schedule II opioid dr... Start Date: 05/20/22 Status: Ordered omeprazole 20 mg oral delayed release tablet 1 tablet, By Mouth, Daily, # 30 tablet, 1 Refills, Maintenance, 11/16/22 17:01:00 EDT, [id number], 173.7, cm, 10/23/22 9:44:00 EST, Height, 104.5, kg, 04/01/21 6:08:00 EDT, Dry Weight Start Date: 11/16/22 Status: Ordered RisperDAL 0.25 mg oral tablet 0.25 mg, 1, tablet, By Mouth, 2 times a day, # 60 tablet, Refills 2, Tot. Refills 2, Maintenance, 07/18/21 13:36:00 EST, Route to Pharmacy Electronically, [facility]/pharmacy #[id number], Partial fill upon patient request [...] injury) Confirmed Active Urinary incontinence Confirmed Active 13430 Social History Social History Type Response Smoking Status Never (less than 100 in lifetime) entered on: 04/17/21 Sex Patient Care team information Care Team Personnel Name: Annalisa Mishra MD Position: [facility] Physician - Primary Care Member Role: PCP Address: Address: [address] [place] [address] Name: Oneyda Swift RN Position: [facility] ED RN W/OE and Tasks Member Role: Primary Care Nurse Name: Shelley Cowan RN Position: [facility] RN Supv Member Role: Primary Care Nurse Name: Mary Cordoba RN Position: [facility] RN Member Role: Primary Care Nurse Name: Brenda Cabrera RN Position: [facility] RN Member [...] Primary Care Nurse Name: Kathyyuliana Janina Position: [facility] RN Member Role: [...] Primary Care Nurse Name: Yesy Adams Position: [facility] RN Member Role: [...] Persons Name: ELI KIM Address: home [address] [place] [address] Name: JUAN KIM
--- OUTSIDE RECORDS SUMMARY | 2024-04-02 06:18 | XMS_ITS | Continuity of Care Document ---
Author Organization [facility] ter Address [address] [place] [address]- Care Team Providers Care Protective Services Officer Name Role Phone Annalisa Mishra MD Primary Care Physician Encounter [facility] Date(s): 04/27/23 - 04/27/[address] [address] Discharge Disposition: A-D/C Home Attending Physician: Delvin Weiner MD Admitting Physician: Delvin Weiner MD Referring Physician: Delvin Weiner MD Allergies, Adverse Reactions, Alerts Substance Reaction [...] 3 Refills, Maintenance, 07/18/21 13:34:00 EST, Powder, [facility]/pharmacy #[id number], Partial fill upon patient request if the prescriptionis for a schedule II opioid drug., 2 puffs Inhalati... Start Date: 07/18/21 Status: Ordered clonazePAM 0.5 mg oral tablet 1 tablet, By Mouth, 3 times a day, # 84 tablet, 0 Refills, Maintenance, 04/24/23 11:41:00 EDT, [id number], 173.7, cm, 03/11/23 10:57:00 EDT, Height, 109.3, kg, 03/02/23 11:42:00 EDT, Dry Weight Start Date: 04/24/23 Status: Ordered D3 By Mouth, Daily, 0 Refills, Maintenance, 07/28/22 13:48:00 EST, Partial fill upon patient request if the prescription is for a schedule II opioid drug. Start Date: 07/28/22 Status: Ordered Keppra 500 mg oral tablet 2 tablet = 1,000 mg, By Mouth, 2 times a day, # 120 tablet, 3 Refills, Maintenance, 02/27/22 12:47:00 EDT, Tablet, [facility]/pharmacy #[id number], Partial fill upon patient request if the prescription is for a schedule II opioid drug., 173.7, cm, 01/31/22 9:57:00... Start Date: 02/27/22 Status: Ordered labetalol 200 mg oral tablet 2 tablet, By Mouth, Every 8 hours, # 540 tablet, 1 Refills, Maintenance, 09/30/22 15:25:00 EST, [facility], 173.7, cm, 07/28/22 13:45:00 EST, Height, 104.5, kg, 04/01/21 6:08:00 EDT, Dry Weight Start Date: 09/30/22 Status: Ordered levETIRAcetam 500 mg oral tablet 2 tablet = 1,000 mg, By Mouth, 2 times a day, # 360 tablet, 1 Refills, Maintenance, 01/26/23 16:00:00 EDT, [facility]/pharmacy #[id number], 173.7, cm, 01/15/23 12:41:00 EDT, Height, [...] 3 Refills, Maintenance, 05/20/22 10:20:00 EDT, Tablet, [facility]/pharmacy #[id number], Partial fill upon patient request if the prescription is for a schedule II opioid dr... Start Date: 05/20/22 Status: Ordered omeprazole 20 mg oral delayed release tablet 1 tablet, By Mouth, Daily, # 30 tablet, 1 Refills, Maintenance, 11/16/22 17:01:00 EDT, [facility], 173.7, cm, 10/23/22 9:44:00 EST, Height, 104.5, kg, 04/01/21 6:08:00 EDT, Dry Weight Start Date: 11/16/22 Status: Ordered RisperDAL 0.25 mg oral tablet 0.25 mg, 1, tablet, By Mouth, 2 times a day, # 60 tablet, Refills 2, Tot. Refills 2, Maintenance, 07/18/21 13:36:00 EST, Route to Pharmacy Electronically, [facility]/pharmacy #[id number], Partial fill upon patient request if the prescription is for a schedule II o... Start Date: 07/18/21 Status: Ordered sertraline 100 mg oral tablet 1 tablet = 100 mg, By Mouth, Daily, # 90 tablet, 3 Refills, Maintenance, 04/23/21 16:47:00 EDT, Tablet, [facility]/pharmacy #[id number], Partial fill upon [...] injury) Confirmed Active Urinary incontinence Confirmed Active 28762 Procedures Procedure Date Related Diagnosis Body Site Status Colonoscopy 04/27/23 Completed Esophagogastroduodenoscopy and biopsy 04/27/23 Completed Vital Signs Most recent to oldest [Reference Range]: 1 2 3 Height 178 cm (04/27/23 7:15 AM) Oxygen Saturation [94-100 %] 100 % (04/27/23 8:24 AM) 100 % (04/27/23 8:13 AM) 98 % (04/27/23 7:15 AM) Pulse Rate [55-90 bpm] 70 bpm (04/27/23 7:15 AM) Blood Pressure [90-138/55-84 mm Hg] 118/74mm Hg (04/27/23 8:24 AM) 110/66mm Hg (04/27/23 8:13 AM) 133/94mm Hg (04/27/23 7:15 AM) Respiratory Rate [16-30 br/min] 18 br/min (04/27/23 8:24 AM) 19 br/min (04/27/23 8:13 AM) 20 br/min (04/27/23 7:15 AM) Temperature [96.8-100.4 DegF] 97 DegF (04/27/23 7:15 AM) Mode of Delivery (Oxygen) Room air (04/27/23 8:24 AM) Room air (04/27/23 8:13 AM) Room air (04/27/23 7:15 AM) Blood pressure sites Arm, left (04/27/23 8:24 AM) Arm, left (04/27/23 8:13 AM) Arm, left (04/27/23 7:15 AM) Temperature Route Temporal (04/27/23 7:15 AM) Dry Weight 104.4 kg (04/27/23 7:15 AM) Dry Weight Obtained Via Patient/family s tated (04/27/23 7:15 AM) Social History Social History Type Response Smoking Status Never (less than 100 in lifetime) entered on: 04/17/21 Sex Note * Janina Powell RN: PERFORM Event Display: Discharge/Transfer Note Hospital Authored Date: [id number] Nursing Discharge Note Entered On: 04/27/2023 8:25 EDT Performed On: 04/27/2023 8:24 EDT by Janina Powell RN Nursing Discharge Note 2 Discharge Time : 04/27/2023 8:40 EDT Discharge Level of Care at Discharge : Home/Skilled Nursing/Foster Care Janina Powell RN - 04/27/2023 8:43 EDT Patient Left Unit Via : Wheelchair Patient Accompanied Off Unit with : Responsible adult DC Instructions Provided & Signed by Pt : Yes Patient Understands D/C Instructions : Yes Patient Instructions Discharge Signed : Yes Did Pt have Specialty Bed or Wound Vac : No Janina Powell RN - 04/27/2023 8:24 EDT * Janina Powell RN: PERFORM Event Display: Patient Education/Instruction Authored Date: [id number] Surgery Adult Discharge Instructions [address] [id number] Name: CONCEPCION KIM : 1985?? Visit: 04/27/2023 06:41?? Current Date: 04/27/2023 08:25 ?? Account: [id number]?? Surgery Discharge Instructions We would like to thank you for allowing us to assist you with your healthcare needs. The following includes patient education materials and information regarding your injury/illness. Our entire staffstrives to provide an excellent experience for our patients and their families. PLEASE ENSURE YOU FOLLOW-UP PER THE INSTRUCTIONS BELOW! ?? YOUR OPINION IS IMPORTANT TO US! Please complete the survey you may receive by mail or email. Your feedback will be used to make improvements to the healthcare experiences of our patients and their families. Surveys are administered by [employer] ?? If further treatment with your primary care physician or another doctor is recommended, it is important for you to keep the appointment. Call your primary care physician or return to the Emergency Department immediately if your condition worsens, fails to improve, or new symptoms develop. If you need to find a doctor, you can call [facility] [employer] for a referral at [phone] or toll free at [phone]) or log in to [email or web address].. ?? You can view and manage your care through the patient portal or by using a health care marleny of your choosing. [employer] is a website that allows you to securely view your medical information including your hospital discharge summary, office visit summaries, medications and follow-up visits. You can also request appointments, renew medications, and request access to your medical information using a health care marleny of your choosing, or just ask a question. You are entitled to know the individuals who participated in your treatment. This information is available within your medical record and will be provided upon your request. You can enroll at [email or web address] or register d uring your next office visit. You have been discharged from [facility], Patient Care Unit: ENDO??. If you have any questions regarding these instructions after you leave, please call us and we will be happy to assist you. [facility] Your Care Team Attending Physician Delvin Weiner MD?? Discharging Providers Delvin Weiner MD Reason for Admission GEN AB PAIN DIARRHEA Primary Care Provider Tad BRITO, Annalisa Mena? Advance Directive Health Care Proxy on File Yes - Health Care Proxy What to do next Instructions From Your Doctor ?? Orders?? Daystay Protocol, ??04/27/23 8:16:00 EDT?? Scheduled Follow-Up Appointments Thursday 1:00 PM EDT ?? With: Nadege Rivero NP Where: [facility] [address] [place] [address]- Status: Pending Thursday 9:40 AM EDT ?? With: Annalisa Mishra MD Where: [facility] [address] [address]- Status: Pending You Need to Schedule the Following Appointments Follow Up with??As Needed Follow Up with??As Needed Discharge Medications CONCEPCION KIM :1985 Visit Date:04/27/2023 Medications: Please continue your medications until treatment is completed or stopped by your provider. You may resume your daily prescription medications. Discuss any questions related to medications with your provider. What How Much When Instructions Next Dose Unchanged Albuterol (albuterol 90 mcg/ inh inhalation powder) 2 puff(s) Inhalation Every 6 hours as needed for as needed Unchanged Cholecalciferol (D3) Oral Daily Unchanged Clonazepam (clonazePAM 0.5 mg oral tablet) 1 tab(s) Oral 3 times a day Unchanged Labetalol (labetalol 200 mg oral tablet) 2 tab(s) Oral Every 8 hours Unchanged levETIRAcetam (Keppra 500 mg oral tablet) 2 tab(s) Oral Twice a day Unchanged levETIRAcetam (levETIRAcetam 500 mg oral tablet) 2 tab(s) Oral Twice a day Unchanged Multivitamin (Multivitamin Tablet) 1 tab(s) Nasogastric tube Daily Unchanged Naltrexone (naltrexone 50 mg oral tablet) See instructions By Mouth Daily 1/ 2 tablet for 10 days the 1 tablet thereare ?? Unchanged Omeprazole (omeprazole 20 mg oral delayed release tablet) 1 tab(s) Oral Daily Unchanged Risperidone (RisperDAL 0.25 mg oral tablet) 1 tab(s) Oral Twice a day Unchanged Sertraline (sertraline 100 mg oral tablet) 1 tab(s) Oral Daily Allergies (NKA means No Known Allergies) Onions??( stomach bleed ) Education Materials Below is the list of Educational Leaflet Providered with your Discharge Instructions. Surgery Medical Daystay Surgical Overnight Discharge Instructions?? Valuables and Belongings I fully understand and agree that [facility] accepts no responsibility for all my personal property including clothing, toilet articles, radios, jewelry, dentures, hearing aids, rings, money, or any other property that is in my possession or is brought to me after admission. I understand certain valuables may be placed in a hospital safe for a short period of time. I understand that the hospital is not liable for loss or damage due to accident, fire, or other natural occurrence while said property is in the safe. I accept full responsibility for any personal property that I keep with me, and will not hold the hospital responsible in case of loss or disappearance. I acknowledge that i have been encouraged to send valuables and belongings home. ? Other Discharge Information ? Pulmonary Rehab Status?? Pulmonary Rehab Discharge Status?? Respiratory Rate: 19 br/min ? Common Emergency Awareness Tips IS IT A STROKE? Act FAST and Check for these signs: FACE Does the face look uneven? ARM Does one arm drift down? SPEECH Does their speech sound strange? TIME Call at any sign of stroke ?? Heart Attack Signs Chest discomfort: Most heart attacks involve discomfort in the center of the chest and lasts more than a few minutes, or goes away and comes back. It can feel like uncomfortable pressure, squeezing, fullness or pain. Discomfort in upper body: Symptoms can include pain or discomfort in one or both arms, back, neck, jaw or stomach. Shortness of breath: With or without discomfort. Other signs: Breaking out in a cold sweat, nausea, or lightheaded. Remember, MINUTES DO MATTER. If you experience any of these heart attack warning signs, call to get immediate medical attention! ?? Smoking can increase your chances of developing chronic health problems and can cause harmful effects to other family members in your house. If you smoke, you are strongly encouraged to quit. Please call [facility] [employer] at [phone] or [phone]) or log in to [email or web address] for referrals to smoking cessation programs. ?? The National Suicide Prevention Hotline is available 30/03 if you or someone you know needs to find a reason to keep living. By calling 4-439-910-[employer] (4038) you'll be connected to a skilled, trained counselor at a crisis center in your area. SURGERY DISCHARGE INSTRUCTIONS SIGNATURE PAGE CONCEPCION KIM Location:[facility] Registration Date and Time:04/27/2023 06:41 EDT Primary Care Physician: Tad BRITO, Annalisa Mena, Attending Physician: Regine BRITO, Delvin Couch, I CONCEPCION KIM, have received the above patient education materials/instructions and have verbalized understanding. If ambulance or transport services are being used I further acknowledge being given a choice of service. ?? If you need to contact me, please call me at this number: . Patient/Tie Loader Name: Patient/Tie Loader Signature: Relationship to Patient: Witness Name/Signature: Date: * Janina Powell RN: PERFORM Event Display: Patient Education Leaflets Authored Date: [id number] Surgery Medical Daystay Surgical Overnight Discharge Instructions ?? 295 Medical Daystay/Surgical Overnight Discharge Instructions ? Since your coordination and judgment may be altered by medication and/or anesthesia, a responsible adult must drive you home from the hospital. ? If you have received medication for pain or sedation while under our care, you should not drive, operate machinery, drink alcohol, or sign any legal documents for 24 hours.?? You should have someone with you at home tonight. ? Remain at home the day of discharge.?? You may be up and about unless otherwise instructed by your physician. ? You may resume your daily prescription medication schedule.?? Any depressant medication should be avoided for 24 hours unless otherwise instructed by your surgeon or anesthesiologist. ? Call your physician for a follow-up appointment.? If you experience unusual or severe pain not relied by your pain medication, excessive bleedingor drainage, persistent nausea and vomiting, excessive swelling or redness, foul odor from incisionsite or fever over 100.6F, you need to call your physician. ? A follow-up phone call by a nurse will be made the day after your procedure.?? If you have stayed with us over night, you will not be receiving a follow-up phone call. ? Nausea and vomiting are a common side effect of prescription pain medication.?? We recommend that pills are not taken on an empty stomach.?? While taking any prescription pain medication you should not drive or drink alcohol. ? Patient Care team information Care Team Personnel Name: Annalisa Mishra MD Position: [facility] Physician - Primary Care Member Role: PCP Address: Address: [address] [place], [place] [address] Name: Oneyda Swift RN Position: [facility] RN Member Role: Primary Care Nurse Name: Shelley Cowan RN Position: [facility] RN Supv Member Role: Primary Care Nurse Name: Brenda Cabrera RN Position: [facility] RN Member Role: Primary Care Nurse Name: Rosa Ngo RN Position: [facility] RN Member Role: Primary Care Nurse Name: Charli Cosme RN Position: [facility] RN Member Role: Primary Care Nurse Name: Mary Calix RN Position: [facility] RN Member Role: Primary Care Nurse Name: Caryn Tripathi RN Position: [facility] RN Member Role: Primary Care Nurse Name: Roma Baker RN Position: [facility] RN Member Role: Primary Care Nurse Name: Anthony Fowler RN Position: [facility] RN Member Role: Primary Care Nurse Name: Janina Michele Position: [facility] RN Member Role: Primary Care Nurse Name: Denise Ibarra RN Position: [facility] RN Member Role: Primary Care Nurse Name: Tiburcio Hercules RN Position: [facility] RN Supv Member Role: Primary Care Nurse Name: Brenna Collazo RN Position: [facility] RN Member Role: Primary Care Nurse Name: Susan Sheikh RN Position: [facility] RN Member Role: Primary Care Nurse Name: Yesy Adams Position: [facility] RN Member Role: Primary Care Nurse Name: Delores Garcia RN Position: [facility] RN Member Role: Primary Care Nurse Name: Susan Bates RN Position: [facility] RN Member Role: Primary Care Nurse Name: Suzanna Kim RN Position: [facility] RN Member Role: Primary Care Nurse Name: Chandrika Luis RN Position: [facility] RN Member Role: Primary Care Nurse Name: Jessica Fulton RN Position: [facility] PCO w/OE and EZ Script Member Role: Primary Care Nurse Name: Eda Luna RN Position: [facility] RN Member Role: Primary Care Nurse Care Team Related Persons Name: ELI KIM Address: [address] [address]
--- OUTSIDE RECORDS SUMMARY | 2024-04-02 06:18 | XMS_ITS | Continuity of Care Document ---
Author Organization [facility] Address [address] [place] [address]- Care Team Providers Care Pcts Name Role Phone Annalisa Mishra MD Primary Care Physician [facility]counter [facility] Date(s): 07/08/23 - 08/07/23 [facility] [address] [place] [address]- Allergies, Adverse Reactions, Alerts Substance Reaction Severity [...] 1 Refills, Maintenance, 06/04/23 12:05:00 EDT, [facility], 178, cm, 06/03/23 13:07:00 EDT, Height, 104.4, [...] Refills, Maintenance, 11/16/22 17:01:00 EDT, [facility], 173.7, cm, 10/23/22 9:44:00 EST, Height, 104.5, [...] injury) Confirmed Active Urinary incontinence Confirmed Active 43325 Social History Social History Type Response Smoking Status Never (less than 100 in lifetime) entered on: 04/17/21 Sex Patient Care team information Care Team Personnel Name: Annalisa Mishra MD Position: [facility] Physician - Primary Care Member Role: PCP Address: Address: [address] [place] [address] Name: Oneyda Swift RN Position: [facility] ED RN W/OE and Tasks Member Role: Primary Care Nurse Name: Shelley Cowan RN Position: [facility] RN Supv Member Role: Primary Care Nurse Name: Brenda Cabrera RN Position: [facility] RN Member Role: Primary Care Nurse Name: Rosa Ngo RN Position: [facility] RN Member Role: Primary Care Nurse Name: Charli Cosme RN Position: [facility] RN Member Role: Primary Care Nurse Name: Mary Calix RN Position: [facility] RN Member Role: Primary Care Nurse Name: Caryn Tripathi RN Position: [facility] RN Member Role: Primary Care Nurse Name: Roma Baker RN Position: [facility] RN Member Role: Primary Care Nurse Name: Anthony Fowler RN Position: [facility] RN Member Role: Primary Care Nurse Name: Janina Michele Position: [facility] RN Member Role: Primary Care Nurse Name: Denise Ibarra RN Position: [facility] RN Member Role: Primary Care Nurse Name: Tiburcio Hercules RN Position: [facility] RN Supv Member Role: Primary Care Nurse Name: Brenna Collazo RN Position: [facility] RN Member Role: Primary Care Nurse Name: Susan Sheikh RN Position: [facility] RN Member Role: Primary Care Nurse Name: Yesy Adams Position: [facility] RN Member Role: Primary Care Nurse Name: Delores Garcia RN Position: [facility] RN Member Role: Primary Care Nurse Name: Susan Bates RN Position: [facility] RN Member Role: Primary Care Nurse Name: Suzanna Kim RN Position: [facility] RN Member Role: Primary Care Nurse Name: Chandrika Luis RN Position: [facility] RN Member Role: Primary Care Nurse Name: Eda Luna RN Position: [facility] RN Member Role: Primary Care Nurse Care Team Related Persons Name: ELI KIM Address: [address] [address]
--- OUTSIDE RECORDS SUMMARY | 2024-04-02 06:18 | XMS_ITS | Continuity of Care Document ---
Author Organization [facility] Address [address] [place] [address]- Care Team Providers Care Roll Weigher Name Role Phone Annalisa Mishra MD Primary Care Physician Encounter [facility] Date(s): 11/11/23 - 12/11/23 [facility] [address] [place] [address]- Allergies, Adverse Reactions, Alerts Substance Reaction Severity [...] tablet, 0 Refills, Maintenance, 11/06/23 16:13:00 EST, [facility]/pharmacy #[id number], 178, cm, 10/23/23 12:39:00 EST, Height, 104.4, kg, 04/27/23 7:15:00 EDT, Dry Weight Start Date: 11/06/23 Status: Ordered clonazePAM 0.5 mg oral tablet 1 tablet = 0.5 mg, By Mouth, 3 times a day, PRN Anxiety, # 84 tablet, 0 Refills, Maintenance, 12/11/23 13:09:00 EDT, [facility]/pharmacy #[id number], 178, cm, 10/23/23 12:39:00 EST, [...] capsule, 1 Refills, Maintenance, 09/17/23 12:02:00 EST, [facility] STORE [facility], 178, cm, 09/10/23 9:22:00 EST, Height, 104.4, kg, 04/27/23 7:15:00 EDT, Dry Weight Start Date: 09/17/23 Status: Ordered Eliquis 5 mg oral tablet 1 tablet = 5 mg, By Mouth, 2 times a day, # 60 tablet, 0 Refills, Maintenance, 11/11/23 17:22:00 EST, Tablet, [facility]/pharmacy #[id number], Partial fill upon patient request if the prescription is for a schedule II opioid drug., 178, cm, 10/23/23 12:39:00 EST,... Start Date: 11/11/23 Status: Ordered labetalol 200 mg oral tablet 2 tablet, By Mouth, Every 8 hours, # 540 tablet, 1 Refills, Maintenance, 09/17/23 18:52:00 EST, [facility], 178, cm, 09/10/23 9:22:00 EST, Height, 104.4, kg, 04/27/23 7:15:00 EDT, Dry Weight Start Date: 09/17/23 Status: Ordered levETIRAcetam 500 mg oral tablet 2 tablet, By Mouth, 2 times a day, # 360 tablet, 1 Refills, Maintenance, 06/04/23 12:05:00 EDT, [facility], 178, cm, 06/03/23 13:07:00 EDT, Height, 104.4, [...] 3 Refills, Maintenance, 05/20/22 10:20:00 EDT, Tablet, [facility]/pharmacy #[id number], Partial fill upon patient request if the prescription is for a schedule II opioid drTimo. Start Date: 05/20/22 Status: Ordered omeprazole 20 mg oral delayed release tablet 1 tablet, By Mouth, Daily, # 30 tablet, 1 Refills, Maintenance, 11/16/22 17:01:00 EDT, [facility], 173.7, cm, 10/23/22 9:44:00 EST, Height, 104.5, kg, 04/01/21 6:08:00 EDT, Dry Weight Start Date: 11/16/22 Status: Ordered RisperDAL 0.25 mg oral tablet 0.25 mg, 1, tablet, By Mouth, 2 times a day, # 60 tablet, Refills 2, Tot. Refills 2, Maintenance, 07/18/21 13:36:00 EST, Route to Pharmacy Electronically, [facility]/pharmacy #[id number], Partial fill upon patient request if the prescription is for a schedule II o... Start Date: 07/18/21 Status: Ordered sertraline 100 mg oral tablet 1 tablet = 100 mg, By Mouth, Daily, # 90 tablet, 3 Refills, Maintenance, 04/23/21 16:47:00 EDT, Tablet, [facility]/pharmacy #[id number], Partial fill upon patient request [...] injury) Confirmed Active Urinary incontinence Confirmed Active 74430 Social History Social History Type Response Smoking Status Never (less than 100 in lifetime) entered on: 04/17/21 Sex Patient Care team information Care Team Personnel Name: Annalisa Mishra MD Position: [facility] Physician - Primary Care Member Role: PCP Address: Address: [address] [place] [address] Name: Oneyda Swift RN Position: [facility] ED RN W/OE and Tasks Member Role: Primary Care Nurse Name: Shelley Cowan RN Position: [facility] RN Supv Member Role: Primary Care Nurse Name: Mary Cordoba RN Position: [facility] RN Member Role: Primary Care Nurse Name: Brenda Cabrera RN Position: [facility] RN Member Role: Primary Care Nurse Name: Rosa Ngo RN Position: [facility] RN Member Role: Primary Care Nurse Name: Caryn Tripathi RN Position: [facility] RN Member Role: Primary Care Nurse Name: Roma Baker RN Position: [facility] RN Member Role: Primary Care Nurse Name: Anthony Fowler RN Position: [facility] RN Member Role: Primary Care Nurse Name: Janina Michele Position: [facility] RN Member Role: Primary Care Nurse Name: Denies Ibarra RN Position: [facility] RN Member Role: Primary Care Nurse Name: Tiburcio Hercules RN Position: [facility] RN Max Member Role: Primary Care Nurse Name: Brenna Collazo RN Position: [facility] RN Member Role: Primary Care Nurse Name: Susan Sheikh RN Position: [facility] RN Member Role: Primary Care Nurse Name: Yesy Adams Position: [facility] RN Member Role: Primary Care Nurse Name: Delores Garcia RN Position: [facility] RN Member Role: Primary Care Nurse Name: Suzanna Kim RN Position: [facility] RN Member Role: Primary Care Nurse Name: Chandrika Luis RN Position: [facility] RN Member Role: Primary Care Nurse Name: Eda Luna RN Position: [facility] RN Member Role: Primary Care Nurse Care Team Related Persons Name: ELI KIM Address: home [address] [place] [address] Name: JUAN KIM
--- OUTSIDE RECORDS SUMMARY | 2024-04-02 06:18 | XMS_ITS | Continuity of Care Document ---
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 Role Phone Annalisa Mishra MD Primary Care Physician En[place] [facility] Date(s): 10/12/23 - 10/19/23 [facility] [address] [place] [address]- Encounter Diagnosis Seizures(Discharge Diagnosis) - 10/12/23 Alcohol use disorder, moderate, dependence(Discharge Diagnosis) - 10/12/23 History of blood clots(Discharge Diagnosis) - 10/12/23 Attending Physician: Angie Enciso NP Allergies, Adverse Reactions, Alerts Substance Reaction Severity [...] Refills, Maintenance, 07/18/21 13:34:00 EST, Powder, [id number], Partial fill upon patient request if the prescriptionis for a schedule II opioid drug., 2 puffs Inhalati... Start Date: 07/18/21 Status: Ordered Benefiber oral powder for reconstitution = 3.5 Gm, By Mouth, Daily, dissolve in 4 to 8 oz of beverage, # 105 Gm, 2 Refills, Maintenance, 06/03/23 13:34:00 EDT, REC Powder, [facility]/pharmacy #[id number], Partial fill upon patient request if the prescription is for a schedule II opioid drug., 3.5 Gm By M... Start Date: 06/03/23 Stop Date: 09/01/23 Status: Ordered clonazePAM 0.5 mg oral tablet 1 tablet, By Mouth, 3 times a day, # 84 tablet, 0 Refills, Maintenance, 06/29/23 17:01:00 EDT, [facility]/pharmacy #[id number], 178, cm, 06/03/23 13:07:00 EDT, Height, 104.4, kg, 04/27/23 7:15:00 EDT, Dry Weight Start Date: 06/29/23 Status: Ordered clonazePAM 0.5 mg oral tablet 1 tablet = 0.5 mg, By Mouth, 3 times a day, PRN Anxiety, # 84 tablet, 0 Refills, Maintenance, 09/24/23 15:05:00 EST, [facility]/pharmacy #[id number], 178, cm, 09/10/23 [...] capsule, 1 Refills, Maintenance, 09/17/23 12:02:00 EST, [facility], 178, cm, 09/10/23 9:22:00 EST, Height, 104.4, [...] 1 Refills, Maintenance, 09/17/23 18:52:00 EST, [facility], 178, cm, 09/10/23 9:22:00 EST, Height, 104.4, kg, 04/27/23 7:15:00 EDT, Dry Weight Start Date: 09/17/23 Status: Ordered levETIRAcetam 500 mg oral tablet 2 tablet, By Mouth, 2 times a day, # 360 tablet, 1 Refills, Maintenance, 06/04/23 12:05:00 EDT, [facility], 178, cm, 06/03/23 13:07:00 EDT, Height, 104.4, [...] Refills, Maintenance, 11/16/22 17:01:00 EDT, [facility], 173.7, cm, 10/23/22 9:44:00 EST, Height, 104.5, kg, 04/01/21 6:08:00 EDT, Dry Weight Start Date: 11/16/22 Status: Ordered RisperDAL 0.25 mg oral tablet 0.25 mg, 1, tablet, By Mouth, 2 times a day, # 60 tablet, Refills 2, Tot. Refills 2, Maintenance, 07/18/21 13:36:00 EST, Route to Pharmacy Electronically, [facility]/pharmacy #[id number], Partial fill upon patient request if the prescription is for a schedule II o... Start Date: 07/18/21 Status: Ordered sertraline 100 mg oral tablet 1 tablet = 100 mg, By Mouth, Daily, # 90 tablet, 3 Refills, Maintenance, 04/23/21 16:47:00 EDT, Tablet, [facility]/pharmacy #[id number], Partial fill upon [...] injury) Confirmed Active Urinary incontinence Confirmed Active 94053 Diagnosis Diagnosis Type Effective Dates Health Status Clinical Service Informant Seizures Discharge Diagnosis 10/12/23 Alcohol use disorder, moderate, dependence Discharge Diagnosis 10/12/23 History of blood clots Discharge Diagnosis 10/12/23 Vital Signs Most recent to oldest [Reference Range]: 1 Height 178 cm (10/12/23 10:27 AM) Weight 102.5 kg (10/12/23 10:27 AM) Oxygen Saturation [94-100 %] 99 % (10/12/23 10:27 AM) Pulse Rate [55-90 bpm] 77 bpm (10/12/23 10:27 AM) Body Mass Index [18.5-24.99 kg/m2] 32.35 kg/m2 *>HHI* (10/12/23 10:27 AM) Blood Pressure [90-138/55-84 mm Hg] 118/ 82mm Hg (10/12/23 10:27 AM) Mode of Delivery (Oxygen) Room air (10/12/23 10:27 AM) Blood pressure sites Arm, left (10/12/23 10:27 AM) Weight Obtained Via Standing scale (10/12/23 10:27 AM) Social History Social History Type Response Smoking Status Never (less than 100 in lifetime) entered on: 04/17/21 Sex Patient Care team information Care Team Personnel Name: Annalisa Mishra MD Position: [facility] Physician - Primary Care Member Role: PCP Address: Address: [address] [place] [address] Name: Oneyda Swift RN [facility] Hercules RN Position: [facility] RN Supv [...] Care Nurse Name: Suzanna Kim RN Position: S RN Member Role: Primary Care Nurse Name: Chandrika Luis RN Position: [facility] RN Member Role: Primary Care Nurse Name: Eda Luna RN Position: S RN Member Role: Primary Care Nurse Care Team Related Persons Name: ELI KIM Address: home [address] [place] [address]
--- OUTSIDE RECORDS SUMMARY | 2024-04-02 06:18 | XMS_ITS | Continuity of Care Document ---
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 Role Phone Annalisa Mishra MD Primary Care Physician Encounter [facility] Date(s): 01/15/23 - 02/14/23 [facility] [address] [place] [id number]- Attending Physician: Skinny Urena Admitting Physician: Skinny Urena Referring Physician: AdmtrSkinny Allergies, Adverse Reactions, Alerts Substance Reaction Severity [...] 3 Refills, Maintenance, 02/27/22 12:47:00 EDT, Tablet, [facility]/pharmacy #[id number], Partial fill upon patient request if the prescription is for a schedule II opioid drug., 173.7, cm, 01/31/22 9:57:00... Start Date: 02/27/22 Status: Ordered labetalol 200 mg oral tablet 2 tablet, By Mouth, Every 8 hours, # 540 tablet, 1 Refills, Maintenance, 09/30/22 15:25:00 EST, [facility], 173.7, cm, 07/28/22 13:45:00 EST, Height, 104.5, [...] Refills, Maintenance, 11/16/22 17:01:00 EDT, [facility], 173.7, cm, 10/23/22 9:44:00 EST, Height, 104.5, [...] injury) Confirmed Active Urinary incontinence Confirmed Active 10959 Social History Social History Type Response Smoking Status Never (less than 100 in lifetime) entered on: 04/17/21 Sex Patient Care team information Care Team Personnel Name: Annalisa Mishra MD Position: [facility] Physician - Primary Care Member Role: PCP Address: Address: [address] [place] [address] Name: Oneyda Swift RN Position: S RN Member Role: Primary Care Nurse Name: Shelley oCwan RN Position: [facility] RN Supv Member Role: Primary Care Nurse Name: Brenda Cabrera RN Position: [facility] SN RN Member Role: Primary Care Nurse Name: Rosa Ngo RN Position: S RN Member Role: Primary Care Nurse Name: Charli Cosme RN Position: [facility] RN Member Role: Primary Care Nurse Name: Mary Calix RN Position: [facility] RN Member Role: Primary Care Nurse Name: Caryn Tripathi RN Position: [facility] RN Member Role: Primary Care Nurse Name: Roma Baker RN Position: [facility] RN Member Role: Primary Care Nurse Name: Anthony Fowler RN Position: [facility] RN Member Role: Primary Care Nurse Name: Janina Michele Position: S RN Member Role: Primary Care Nurse Name: Denise Ibarra RN Position: [facility] RN Member Role: Primary Care Nurse Name: Tiburcio Hercules RN Position: [facility] RN Supv Member Role: Primary Care Nurse Name: Brenna Collazo RN Position: [facility] RN Member Role: Primary Care Nurse Name: Susan Sheikh RN Position: [facility] RN Member Role: Primary Care Nurse Name: Yesy Adams Position: [facility] RN Member Role: Primary Care Nurse Name: Delores Garcia RN Position: [facility] RN Member Role: Primary Care Nurse Name: Susan Bates RN Position: S RN Member Role: Primary Care Nurse Name: Suzanna Kim RN Position: [facility] RN Member Role: Primary Care Nurse Name: Chandrika Luis RN Position: [facility] RN Member Role: Primary Care Nurse Name: Jessica Fulton RN Position: [facility] PCO w/OE and EZ Script Member Role: Primary Care Nurse Name: Eda Luna RN Position: [facility] RN Member Role: Primary Care Nurse Care Team Related Persons Name: ELI KIM Address: [address] [address]
--- OUTSIDE RECORDS SUMMARY | 2024-04-02 06:18 | XMS_ITS | Continuity of Care Document ---
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 Start Date: 06/03/23 Stop Date: 09/01/23 Status: Ordered clonazePAM 0.5 mg oral tablet 1 tablet, By Mouth, 3 times a day, # 84 tablet, 0 Refills, Maintenance, 06/29/23 17:01:00 EDT, [facility]/pharmacy #[id number], 178, cm, 06/03/23 13:07:00 EDT, Height, 104.4, kg, 04/27/23 7:15:00 EDT, Dry Weight Start Date: 06/29/23 Status: Ordered clonazePAM 0.5 mg oral tablet 1 tablet = 0.5 mg, By Mouth, 3 times a day, PRN Anxiety, # 84 tablet, 0 Refills, Maintenance, 08/24/23 17:20:00 EST, [facility]/pharmacy #[id number], 178, cm, 06/03/23 13:07:00 EDT, Height, 104.4, kg, 04/27/23 7:15:00 EDT, Dry Weight Start Date: 08/24/23 Status: Ordered D3 By Mouth, Daily, 0 Refills, Maintenance, 07/28/22 13:48:00 EST, Partial fill upon patient request if the prescription is for a schedule II opioid drug. Start Date: 07/28/22 Status: Ordered dicyclomine 10 mg oral capsule 1 capsule, By Mouth, 4 times a day, PRN NEEDED FOR IBS CRAMPING, # 360 capsule, 1 Refills, Maintenance, 09/17/23 12:02:00 EST, [id number], 178, cm, 09/10/23 9:22:00 EST, Height, 104.4, kg, 04/27/23 7:15:00 EDT, Dry Weight Start Date: 09/17/23 Status: Ordered labetalol 200 mg oral tablet 2 tablet, By Mouth, Every 8 hours, # 540 tablet, 1 Refills, Maintenance, 09/17/23 18:52:00 EST, [id number], 178, cm, 09/10/23 9:22:00 EST, Height, 104.4, kg, 04/27/23 7:15:00 EDT, Dry Weight Start Date: 09/17/23 Status: Ordered levETIRAcetam 500 mg oral tablet 2 tablet, By Mouth, 2 times a day, # 360 tablet, 1 Refills, Maintenance, 06/04/23 12:05:00 EDT, [id number], 178, cm, 06/03/23 13:07:00 EDT, Height, 104.4, [...] Refills, Maintenance, 11/16/22 17:01:00 EDT, [id number], 173.7, cm, 10/23/22 9:44:00 EST, Height, 104.5, kg, 04/01/21 6:08:00 EDT, Dry Weight Start Date: 11/16/22 Status: Ordered RisperDAL 0.25 mg oral tablet 0.25 mg, 1, tablet, By Mouth, 2 times a day, # 60 tablet, Refills 2, Tot. Refills 2, Maintenance, 07/18/21 13:36:00 EST, Route to Pharmacy Electronically, [facility]/pharmacy #[id number], Partial fill upon patient request if the prescription is for a schedule II o... 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 Discharge Diagnosis 09/10/23 History of substance abuse Discharge Diagnosis 09/10/23 MDD (major depressive disorder), recurrent episode Discharge Diagnosis 09/10/23 Seizures Discharge Diagnosis 09/10/23 Alcohol use disorder, moderate, dependence Discharge Diagnosis 09/10/23 Vital Signs Most recent to oldest [Reference Range]: 1 Height 178 cm (09/10/23 9:22 AM) Weight 106.6 kg (09/10/23 9:22 AM) Oxygen Saturation [94-100 %] 98 % (09/10/23 9:22 AM) Pulse Rate [55-90 bpm] 69 bpm (09/10/23 9:22 AM) Body Mass Index [18.5-24.99 kg/m2] 33.64 kg/m2 *>HHI* (09/10/23 9:22 AM) Blood Pressure [90-138/55-84 mm Hg] 106/ 70mm Hg (09/10/23 9:22 AM) Blood pressure sites Arm, left (09/10/23 9:22 AM) Weight Obtained Via Standing scale (09/10/23 9:22 AM) Social History Social History Type Response Smoking Status Never (less than 100 in lifetime) entered on: 04/17/21 Sex Note * Sally Blanc: PERFORM, SIGN, VERIFY Event Display: Patient Education/Instruction Authored Date: [id number] [facility] *[facility] Clinical Summary Name CONCEPCION KIM Age 38 Years 1985 PCP Tad BRITO, Annalisa Mena PCP Visit Date 09/10/2023 09:18:00 Additional Instructions: Scheduled Appointments?? Future Appointments ?No Future Appointments Scheduled Follow-Up Instructions ?? Diagnosis Unspecified mental disorder due to known physiological condition; Other specified degenerative diseases of nervous system; Unspecified intracranial injury with loss of consciousness of unspecified duration, sequela; Other psychoactive substance abuse, in remission; Unspecified convulsions; Alcohol d ependence, uncomplicated; Unspecified intracranial injury with loss of consciousness status unknown, sequela; Major depressive disorder, recurrent, unspecified; Aphasia Medications: Please continue your medications until treatment is completed or stopped by your provider. Discuss any questions related to medications with your provider. Medications to Continue with No Changes These medications were not printed or sent to your pharmacy Albuterol (albuterol 90 mcg/inh inhalation powder) 2 puff(s) Inhalation every 6 hours as needed. Refills: 3. Next Dose: Cholecalciferol (D3) Oral Daily. Next Dose: Clonazepam (clonazePAM 0.5 mg oral tablet) 1 tab(s) Oral 3 times a day as needed Anxiety. Refills: 0. Next Dose: Clonazepam (clonazePAM 0.5 mg oral tablet) 1 tab(s) Oral 3 times a day. Refills: 0. Next Dose: Dicyclomine (dicyclomine 10 mg oral capsule) 1 capsule Oral 4 times a day as needed IBS cramping for 30 Days. Refills: 5. Next Dose: Labetalol (labetalol 200 mg oral tablet) 2 tab(s) Oral every 8 hours. Refills: 1. Next Dose: levETIRAcetam (levETIRAcetam 500 mg oral tablet) 2 tab(s) Oral twice a day. Refills: 1. Next Dose: Multivitamin (Multivitamin Tablet) 1 tab(s) Nasogastric tube Daily. Next Dose: Naltrexone (naltrexone 50 mg oral tablet) By Mouth Daily 1/2 tablet for 10 days the 1 tablet thereare. Refills: 3. Next Dose: Omeprazole (omeprazole 20 mg oral delayed release tablet) 1 tab(s) Oral Daily. Refills: 1. Next Dose: Risperidone (RisperDAL 0.25 mg oral tablet) 1 tab(s) Oral twice a day. Refills: 2. Next Dose: Sertraline (sertraline 100 mg oral tablet) 1 tab(s) Oral Daily. Refills: 3. Next Dose: wheat dextrin (Benefiber oral powder for reconstitution) 3.5 gram Oral Daily for 30 Days. dissolve in 4 to 8 oz of beverage. Refills: 2. Next Dose: Allergy Info:?? Onions Medications Given This Visit Future Orders ?No future orders Vital Signs Height 178 cm Weight 106.6 kg BMI 33.64 kg/m2 Blood Pressure 106 mm Hg/70 mm Hg Temperature Pulse Rate 69 bpm Respiratory Rate 02 Sat Mode of Delivery 98 %/ You can now view a summary of your hospital visit from the comfort of your home through a free online portal called [email or web address]. [email or web address] is a website that allows you to securely view your medical information including discharge summary, medications and follow-up visits. ??You can alsosend a secure electronic message to your doctor???s office to request appointments, renew medications or just ask a question. You can enroll at [email or web address] or register during your next office visit. Disclaimer:?? The information provided is of a general nature and is intended to be used in conjunction with the recommendations and advice of your health care practitioner. ??Every effort has been made to ensure that the information provided is accurate and complete at the time it is provided to you however, as your needs change, or, as new ??information becomes available, different or additional instructions may be required. If you have questions, please consult with your primary care provider or pharmacist, as appropriate. ??This information is not intended to serve as substitution for assessment and evaluation by a qualified health care provider. If you do not have a primary care provider, you may find a [facility] provider by calling [facility] at [phone]. [facility], in keeping with [facility] guidance, no longer requires face masks for staff, patientsor visitors in most situations. Similar to time spent indoors at other locations, there is the chance that you were exposed to respiratory viruses during your time with us (such as flu or COVID-19).? If you develop symptoms concerning for a viral respiratory infection, please seek testing (and treatment if indicated) from your medical provider or home test kit. For information about the plan of care including goals and instructions for your diagnosis, please see the patient education orders section of this document. Patient Education Materials?? The content of this educational material or handout may have been modified, supplemented, or adapted from its original content and format to support your individualized medical care. * Sally Blanc: PERFORM, SIGN, VERIFY Event Display: Patient Education/Instruction Authored Date: [id number] [facility] *[facility] Clinical Summary Name CONCEPCION KIM Age 38 Years 1985 PCP Annalisa Mishra MD PCP Visit Date 09/10/2023 09:18:00 Additional Instructions: Scheduled Appointments?? Future Appointments ?No Future Appointments Scheduled Follow-Up Instructions ?? Diagnosis Medications: Please continue your medications until treatment is completed or stopped by your provider. Discuss any questions related to medications with your provider. Medications to Continue with No Changes These medications were not printed or sent to your pharmacy Albuterol (albuterol 90 mcg/inh inhalation powder) 2 puff(s) Inhalation every 6 hours as needed. Refills: 3. Next Dose: Cholecalciferol (D3) Oral Daily. Next Dose: Clonazepam (clonazePAM 0.5 mg oral tablet) 1 tab(s) Oral 3 times a day as needed Anxiety. Refills: 0. Next Dose: Clonazepam (clonazePAM 0.5 mg oral tablet) 1 tab(s) Oral 3 times a day. Refills: 0. Next Dose: Dicyclomine (dicyclomine 10 mg oral capsule) 1 capsule Oral 4 times a day as needed IBS cramping for 30 Days. Refills: 5. Next Dose: Labetalol (labetalol 200 mg oral tablet) 2 tab(s) Oral every 8 hours. Refills: 1. Next Dose: levETIRAcetam (levETIRAcetam 500 mg oral tablet) 2 tab(s) Oral twice a day. Refills: 1. Next Dose: Multivitamin (Multivitamin Tablet) 1 tab(s) Nasogastric tube Daily. Next Dose: Naltrexone (naltrexone 50 mg oral tablet) By Mouth Daily 1/2 tablet for 10 days the 1 tablet thereare. Refills: 3. Next Dose: Omeprazole (omeprazole 20 mg oral delayed release tablet) 1 tab(s) Oral Daily. Refills: 1. Next Dose: Risperidone (RisperDAL 0.25 mg oral tablet) 1 tab(s) Oral twice a day. Refills: 2. Next Dose: Sertraline (sertraline 100 mg oral tablet) 1 tab(s) Oral Daily. Refills: 3. Next Dose: wheat dextrin (Benefiber oral powder for reconstitution) 3.5 gram Oral Daily for 30 Days. dissolve in 4 to 8 oz of beverage. Refills: 2. Next Dose: Allergy Info:?? Onions Medications Given This Visit Future Orders ?Comprehensive Metabolic Panel? Order Date:09/10/23?- Complete on or after?09/10/23 ?Levetiracetam Level? Order Date:09/10/23?- Complete on or after?09/10/23 ?Lipid Panel Non Fasting? Order Date:09/10/23?- Complete on or after?09/10/23 ?Hepatitis C Ab? Order Date:09/10/23?- Complete on or after?09/10/23 ?HIV Ab-Ag 4th Generation? Order Date:09/10/23?- Complete on or after?09/10/23 Vital Signs Height 178 cm Weight 106.6 kg BMI 33.64 kg/m2 Blood Pressure 106 mm Hg/70 mm Hg Temperature Pulse Rate 69 bpm Respiratory Rate 02 Sat Mode of Delivery 98 %/ You can now view a summary of your hospital visit from the comfort of your home through a free online portal called [email or web address]. [email or web address] is a website that allows you to securely view your medical information including discharge summary, medications and follow-up visits. ??You can alsosend a secure electronic message to your doctor???s office to request appointments, renew medications or just ask a question. You can enroll at [email or web address] or register during your next office visit. Disclaimer:?? The information provided is of a general nature and is intended to be used in conjunction with the recommendations and advice of your health care practitioner. ??Every effort has been made to ensure that the information provided is accurate and complete at the time it is provided to you however, as your needs change, or, as new ??information becomes available, different or additional instructions may be required. If you have questions, please consult with your primary care provider or pharmacist, as appropriate. ??This information is not intended to serve as substitution for assessment and evaluation by a qualified health care provider. If you do not have a primary care provider, you may find a [facility] provider by calling [facility] at [phone]. [facility], in keeping with [facility] guidance, no longer requires face masks for staff, patientsor visitors in most situations. Similar to time spent indoors at other locations, there is the chance that you were exposed to respiratory viruses during your time with us (such as flu or COVID-19).? If you develop symptoms concerning for a viral respiratory infection, please seek testing (and treatment if indicated) from your medical provider or home test kit. For information about the plan of care including goals and instructions for your diagnosis, please see the patient education orders section of this document. Patient Education Materials?? The content of this educational material or handout may have been modified, supplemented, or adapted from its original content and format to support your individualized medical care. Patient Care team information Care Team Personnel Name: Annalisa Mishra MD Position: [facility] Physician - Primary Care Member Role: PCP Address: Address: [address] [place] [address] Name: Oneyda Swift RN Position: [facility] ED RN W/OE and Tasks Member Role: Primary Care Nurse Name: Shelley Cowan RN Position: [facility] RN Supv Member Role: Primary Care Nurse Name: Brenda Cabrera RN Position: [facility] SN RN Member Role: Primary Care Nurse Name: Rosa Ngo RN Position: [facility] RN Member Role: Primary Care Nurse Name: Mary Calix RN Position: [facility] RN Member Role: Primary Care Nurse Name: Caryn Tripathi RN Position: S RN Member Role: Primary Care Nurse Name: Roma Baker RN Position: [facility] RN Member Role: Primary Care Nurse Name: Anthony Fowler RN Position: [facility] RN Member Role: Primary Care Nurse Name: Janina Michele Position: [facility] RN Member Role: Primary Care Nurse Name: Denise Ibarra RN Position: [facility] RN Member Role: Primary Care Nurse Name: Tiburcio Hercules RN Position: [facility] RN Supv Member Role: Primary Care Nurse Name: Brenna Collazo RN Position: [facility] RN Member Role: Primary Care Nurse Name: Susan Sheikh RN Position: S RN Member Role: Primary Care Nurse Name: Yesy Adams Position: S RN Member Role: Primary Care Nurse Name: Delores Garcia RN Position: [facility] RN Member Role: Primary Care Nurse Name: Susan Bates RN Position: [facility] RN Member Role: Primary Care Nurse Name: Suzanna Kim RN Position: [facility] RN Member Role: Primary Care Nurse Name: Chandrika Luis RN Position: [facility] RN Member Role: Primary Care Nurse Name: Eda Luna RN Position: [facility] RN Member Role: Primary Care Nurse Care Team Related Persons Name: ELI KIM Address: [address] [address]
--- OUTSIDE RECORDS SUMMARY | 2024-04-02 06:19 | XMS_ITS | Continuity of Care Document ---
Author Organization [facility] Address [address] [place] [address]- Care Team Providers Care Physical Instructor Name Role Phone Annalisa Mishra MD Primary Care Phys[place] [facility] [place] - 03/02/[address] [address]- Discharge Disposition: A-D/C Home Attending Physician: Melisa Olmstead MD Admitting Physician: Melisa Olmstead MD Referring Physician: Melisa Olmstead MD Allergies, Adverse Reactions, [...] 3 Refills, Maintenance, 07/18/21 13:34:00 EST, Powder, [facility]/pharmacy #[id number], Partial fill upon patient request if the [...] 3 Refills, Maintenance, 02/27/22 12:47:00 EDT, Tablet, [facility]/pharmacy #[id number], Partial fill upon patient request if the prescription is for a schedule II opioid drug., 173.7, cm, 01/31/22 9:57:00... Start Date: 02/27/22 Status: Ordered labetalol 200 mg oral tablet 2 tablet, By Mouth, Every 8 hours, # 540 tablet, 1 Refills, Maintenance, 09/30/22 15:25:00 EST[facility], 173.7, cm, 07/28/22 13:45:00 EST, Height, 104.5, [...] Refills, Maintenance, 11/16/22 17:01:00 EDT, [facility], 173.7, cm, 10/23/22 9:44:00 EST, Height, 104.5, [...] injury) Confirmed Active Urinary incontinence Confirmed Active 81142 Vital Signs Most recent to oldest [Reference Range]: 1 2 Weight 109.3 kg (03/02/23 11:42 AM) Oxygen Saturation [94-100 %] 94 % (03/02/23 12:45 PM) 99 % (03/02/23 11:42 AM) Pulse Rate [55-90 bpm] 72 bpm (03/02/23 11:42 AM) Blood Pressure [90-138/55-84 mm Hg] 127/ 84mm Hg (03/02/23 12:45 PM) 130/91mm Hg (03/02/23 11:42 AM) Respiratory Rate [16-30 br/min] 23 br/mi n (03/02/23 12:45 PM) 16 br/min (03/02/23 11:42 AM) Temperature [96.8-100.4 DegF] 98.1 DegF (03/02/23 11:42 AM) Mode of Delivery (Oxygen) Room air (03/02/23 12:45 PM) Room air (03/02/23 11:42 AM) Blood pressure sites Arm, right (03/02/23 12:45 PM) Arm, right (03/02/23 11:42 AM) Temperature Route Temporal (03/02/23 11:42 AM) Dry Weight 109.3 kg (03/02/23 11:42 AM) Weight Obtained Via Standing scale (03/02/23 11:42 AM) Dry Weight Obtained Via Standing scale (03/02/23 11:42 AM) Social History Social History Type Response Smoking Status Never (less than 100 in lifetime) entered on: 04/17/21 Sex Note * Suzie Nieto RN: PERFORM, MODIFY Event Display: Patient Education/Instruction Authored Date: [id number] Inpatient Adult Discharge Instructions [place] [id number] Name: CONCEPCIONJulius KIM : 1985 Visit: 03/02/2023 11:13:00 Current Date: 03/02/2023 12:53 Account: [id number] Inpatient Adult Discharge Instructions We would like to thank [...] and their families. Surveys are administered by [employer], [employer]. ?? If further treatment with your primary care physician or another doctor is recommended, it is important for you to keep the appointment. Call your primary care physician or return to the Emergency Department immediately if your condition worsens, fails to improve, or new symptoms develop. If you need to find a doctor, you can call [facility] [employer] for a referral at [phone] or toll free at [phone] ([phone]) or log in to [email or web address].. ?? You can view and manage your care through the patient portal or by using a health care marleny of your choosing. [employer] is a website that allows you to securely view your medical information including your hospital discharge summary, office visit summaries, medications and follow-up visits. You can also request appointments, renew medications, and request access to your medical information using a health care marleny of your choosing, or just ask a question. You can enroll at [email or web address] or register during your next office visit. You have been discharged from [facility], Patient Care Unit: [facility]. If you have any questions regarding these instructions after you leave, please call us and we will be happy to assist you. [facility] Your Care Team Attending Physician Ishan BRITO, Melisa Cason Discharging Providers Ashley Jacques Reason for Admission excision of soft tissue Tests Performed Below is a partial list of the tests performed during your hospitalization. You may have had other tests and procedures not included in this list. Please discuss all test results with your provider. Primary Care Provider Annalisa Mishra MD Advance Directive Health Care Proxy on File Yes - Health Care Proxy Discharge Vitals Temperature: 98.1 DegF Weight: 109.3 kg Pulse Rate: 72 bpm ?? Respiratory Rate: 23 br/min ?? Systolic Blood Pressure: 127 mm Hg ?? Diastolic Blood Pressure: 84 mm Hg ?? Oxygen Saturation: 94 % ?? Studies Pending All tests and labs ordered during this hospital stay have been completed unless listed below. Please discuss all pending results with your provider listed above in these instructions. ?? No incomplete studies found What to do next Instructions From Your Doctor Special instructions: ?If you develop fever, chills, increased pain, nausea, vomiting, bleeding, or increased redness or pus around the wound please call [facility] at [phone].?Activity ?-Take pain medication as needed?-??PAIN control:??You may take Ibuprofen 600 mg every 8 hours and Acetaminophen 650 mg every 6 hours for pain; be careful not to take more than 4000 mg of Acetaminophen in 24 hours or more than 3200 mg of Ibuprofen in 24hrs.?-Your incision is closed with subcuticular sutures and a dry??dressing.??Leave the dressingin place for 48 hours then??remove ?-You may shower after you remove the dressing in 48 hours. ?-Resume your normal diet Discharge Orders Scheduled Follow-Up Appointments Thursday 4:00 PM EDT ?? Where: [facility] [address] [place] [address]- Status: Pending Thursday 8:30 AM EDT ?? With: Ishan BRITO, Melisa Cason Where: [facility] [address] [place] [address]- Status: Pending 2022 12:40 PM EDT ?? With: Annalisa Mishra MD Where: [place] [address] [place] [address]- Status: Pending Thursday 7:30 AM EDT ?? Where: [facility] Status: Pending Discharge Medications CONCEPCION KIM :1985 Visit Date:03/02/2023 Medications: Please continue your medications until treatment is completed or stopped by your provider. Medications not listed below should be discontinued. Discuss any questions related to medications with [...] release tablet) 1 tab(s) Oral Daily Unchanged PEG Electrolyte Solution (Golytely - oral powder for reconstitution) See instructions Drink 240mL every 15 minutes until gone ?? Unchanged Risperidone (RisperDAL 0.25 mg oral tablet) 1 tab(s) Oral Twice a day Unchanged Sertraline (sertraline 100 mg oral tablet) 1 tab(s) Oral Daily Education Materials Below is the list of Educational Leaflet Providered with your Discharge Instructions. Valuables and Belongings I fully understand and agree that [facility] accepts no responsibility for all my [...] Status?? Pulmonary Rehab Discharge Status?? Respiratory Rate: 23 br/min ? Common Emergency Awareness Tips IS [...] are strongly encouraged to quit. Please call [facility] [employer] Link at [phone] or [phone] ([phone]) or log in to [email or web address] for referrals to smoking cessation programs. ?? 151 Suicide & Crisis Lifeline is available 30/03 if you or someone you know needs to find a reason to keep living. By calling 090 you'll be connected to a skilled, trained counselor at a crisis center in your area. INPATIENT DISCHARGE INSTRUCTIONS SIGNATURE CONCEPCION FARMER Location:[facility] Registration Date and Time:03/02/2023 11:13 EDT Primary Care Physician: Annalisa Mishra MD, Attending Physician: Ishan BRITO, Melisa Cason, CONCEPCION OCONNOR, have received the above patient education materials/instructions and have verbalized understanding. If ambulance or transport services are being used I further acknowledge being given a choice of service. ?? If you need to contact me, please call me at this number: . Patient/Senior Php Developer Name: Patient/Senior Php Developer Signature: Relationship to Patient: Witness Name/Signature: Date: Patient Care team information Care Team Personnel Name: Annalisa Mishra MD Position: [facility] Physician - Primary Care Member Role: PCP Address: Address: [address], [place] [address] Name: Oneyda Swift RN Position: S RN Member Role: Primary Care Nurse Name: Shelley Cowan RN Position: S RN Supv Member Role: Primary Care Nurse Name: Brenda Cabrera RN Position: [facility] RN Member Role: Primary Care Nurse Name: Rosa Ngo RN Position: [facility] RN Member Role: Primary Care Nurse Name: Charli Cosme RN Position: [facility] RN Member Role: Primary Care Nurse Name: Mary Calix RN Position: [facility] RN Member Role: Primary Care Nurse Name: Caryn Tripathi RN Position: [facility] RN Member Role: Primary Care Nurse Name: Roma Baker RN Position: [facility] RN Member Role: Primary Care Nurse Name: Anthony Fowler RN Position: [facility] RN Member Role: Primary Care Nurse Name: Janina Michele Position: [facility] RN Member Role: Primary Care Nurse Name: Denise Ibarra RN Position: [facility] RN Member Role: Primary Care Nurse Name: Tiburcio Hercules RN Position: [facility] RN Max Member Role: Primary Care Nurse Name: Brenna Collazo RN Position: [facility] RN Member Role: Primary Care Nurse Name: Susan Sheikh RN Position: [facility] RN Member Role: Primary Care Nurse Name: Yesy Adams Position: [facility] RN Member Role: Primary Care Nurse Name: Delores Garcia RN Position: [facility] RN Member Role: Primary Care Nurse Name: Susan Bates RN Position: [facility] RN Member Role: Primary Care Nurse Name: Suzanna Kim RN Position: [facility] RN Member Role: Primary Care Nurse Name: Chandrika Luis RN Position: [facility] RN Member Role: Primary Care Nurse Name: Jessica Fulton RN Position: [facility] PCO w/OE and EZ Script Member Role: Primary Care Nurse Name: Eda Luna RN Position: [facility] RN Member Role: Primary Care Nurse Care Team Related Persons Name: ELI KIM Address: home [address] [place] [id number]
--- OUTSIDE RECORDS SUMMARY | 2024-04-02 06:19 | XMS_ITS | Continuity of Care Document ---
Author Organization [facility] Address [address] [place] [address]- Care Team Providers Care Waxing Machine Operator Name Role Phone Annalisa Mishra MD Primary Care Physician [place] [facility] [place]24/23 - 10/24/23 [facility] [address] [place], [place] [address] Allergies, Adverse Reactions, Alerts Substance [...] Refills, Maintenance, 06/29/23 17:01:00 EDT, [facility]/pharmacy #[id number], 178, cm, 06/03/23 13:07:00 EDT, Height, 104.4, kg, 04/27/23 7:15:00 EDT, Dry Weight Start Date: 06/29/23 Status: Ordered clonazePAM 0.5 mg oral tablet 1 tablet = 0.5 mg, By Mouth, 3 times a day, PRN Anxiety, # 84 tablet, 0 Refills, Maintenance, 09/24/23 15:05:00 EST, [facility]/pharmacy #[id number], 178, cm, 09/10/23 9:22:00 EST, Height, [...] Refills, Maintenance, 09/17/23 12:02:00 EST, [facility] 27[facility], 178, cm, 09/10/23 9:22:00 EST, Height, 104.4, [...] 1 Refills, Maintenance, 09/17/23 18:52:00 EST, [facility], 178, cm, 09/10/23 9:22:00 EST, Height, 104.4, kg, 04/27/23 7:15:00 EDT, Dry Weight Start Date: 09/17/23 Status: Ordered levETIRAcetam 500 mg oral tablet 2 tablet, By Mouth, 2 times a day, # 360 tablet, 1 Refills, Maintenance, 06/04/23 12:05:00 EDT, [facility], 178, cm, 06/03/23 13:07:00 EDT, Height, 104.4, [...] Maintenance, 05/20/22 10:20:00 EDT, Tablet, [facility]/pharmacy #[id number], Partial fill upon patient request if the prescription is for a schedule II opioid dr... Start Date: 05/20/22 Status: Ordered omeprazole 20 mg oral delayed release tablet 1 tablet, By Mouth, Daily, # 30 tablet, 1 Refills, Maintenance, 11/16/22 17:01:00 EDT, [facility], 173.7, cm, 10/23/22 9:44:00 EST, Height, 104.5, kg, 04/01/21 6:08:00 EDT, Dry Weight Start Date: 11/16/22 Status: Ordered RisperDAL 0.25 mg oral tablet 0.25 mg, 1, tablet, By Mouth, 2 times a day, # 60 tablet, Refills 2, Tot. Refills 2, Maintenance, 07/18/21 13:36:00 EST, Route to Pharmacy Electronically, [facility]/pharmacy #[id number], Partial fill upon patient request if the prescription is for a schedule II o... Start Date: 07/18/21 Status: Ordered sertraline 100 mg oral tablet 1 tablet = 100 mg, By Mouth, Daily, # 90 tablet, 3 Refills, Maintenance, 04/23/21 16:47:00 EDT, Tablet, [facility]/pharmacy #[id number], Partial fill upon patient request if the [...] injury) Confirmed Active Urinary incontinence Confirmed Active 03930 Social History Social History Type Response Smoking Status Never (less than 100 in lifetime) entered on: 04/17/21 Sex Patient Care team information Care Team Personnel Name: Annalisa Mishra MD Position: [facility] Physician - Primary Care Member Role: PCP Address: Address: [address] [place] [address] Name: Oneyda Swift RN Position: [facility] ED RN W/OE and Tasks Member Role: Primary Care Nurse Name: Shelley Cowan RN Position: [facility] RN Supv Member Role: Primary Care Nurse Name: Brenda Cabrera RN Position: [facility] SN RN Member Role: Primary Care Nurse Name: Rosa Ngo RN Position: [facility] RN [...] RN Position: [facility] RN Max Member Role: Primary Care [...] Team Related Persons Name: ELI KIM Address: [address] [address] Name: JUAN KIM
--- OUTSIDE RECORDS SUMMARY | 2024-04-02 06:19 | XMS_ITS | Continuity of Care Document ---
Author Organization [facility] Address [address] [place] [address]- Care Team Providers Care Freezer Worker Name Role Phone Annalisa Mishra MD Primary Care Physician En[place] [facility] [place] Date(s): 10/04/23 - 11/03/23 [facility] [address] [place], [place] [address] Allergies, Adverse Reactions, Alerts Substance Reaction [...] tablet, 0 Refills, Maintenance, 06/29/23 17:01:00 EDT, [facility]/pharmacy #[id number], 178, cm, 06/03/23 13:07:00 EDT, Height, 104.4, kg, 04/27/23 7:15:00 EDT, Dry Weight Start Date: 06/29/23 Status: Ordered clonazePAM 0.5 mg oral tablet 1 tablet = 0.5 mg, By Mouth, 3 times a day, PRN Anxiety, # 84 tablet, 0 Refills, Maintenance, 09/24/23 15:05:00 EST, [facility]/pharmacy #0693, 178, cm, 09/10/23 9:22:00 EST, [...] capsule, 1 Refills, Maintenance, 09/17/23 12:02:00 EST, [facility] 7[facility]11, 178, cm, 09/10/23 9:22:00 EST, Height, 104.4, [...] 1 Refills, Maintenance, 09/17/23 18:52:00 EST, [facility], 178, cm, 09/10/23 9:22:00 EST, Height, 104.4, kg, 04/27/23 7:15:00 EDT, Dry Weight Start Date: 09/17/23 Status: Ordered levETIRAcetam 500 mg oral tablet 2 tablet, By Mouth, 2 times a day, # 360 tablet, 1 Refills, Maintenance, 06/04/23 12:05:00 EDT, [facility], 178, cm, 06/03/23 13:07:00 EDT, Height, 104.4, [...] 3 Refills, Maintenance, 05/20/22 10:20:00 EDT, Tablet, [facility]/pharmacy #0693, Partial fill upon patient request if the prescription is for a schedule II opioid dr... Start Date: 05/20/22 Status: Ordered omeprazole 20 mg oral delayed release tablet 1 tablet, By Mouth, Daily, # 30 tablet, 1 Refills, Maintenance, 11/16/22 17:01:00 EDT, [facility], 173.7, cm, 10/23/22 9:44:00 EST, Height, 104.5, kg, 04/01/21 6:08:00 EDT, Dry Weight Start Date: 11/16/22 Status: Ordered RisperDAL 0.25 mg oral tablet 0.25 mg, 1, tablet, By Mouth, 2 times a day, # 60 tablet, Refills 2, Tot. Refills 2, Maintenance, 07/18/21 13:36:00 EST, Route to Pharmacy Electronically, [facility]/pharmacy #[id number], Partial fill upon patient request if the prescription is for a schedule II o... Start Date: 07/18/21 Status: Ordered sertraline 100 mg oral tablet 1 tablet = 100 mg, By Mouth, Daily, # 90 tablet, 3 Refills, Maintenance, 04/23/21 16:47:00 EDT, Tablet, [facility]/pharmacy #0655, Partial fill upon patient request if the [...] injury) Confirmed Active Urinary incontinence Confirmed Active 36971 Social History Social History Type Response Smoking Status Never (less than 100 in lifetime) entered on: 04/17/21 Sex Patient Care team information Care Team Personnel Name: Annalisa Mishra MD Position: [facility] Physician - Primary Care Member Role: PCP Address: Address: [address] [place] [address] Name: Oneyda Swift RN Position: [facility] ED RN W/OE and Tasks Member Role: Primary Care Nurse Name: Shelley Cowan RN Position: [facility] RN Supv Member Role: Primary Care Nurse Name: Mary Cordoba RN Position: [facility] RN Member Role: Primary Care Nurse Name: Brenda Cabrera RN Position: [facility] SN RN Member Role: Primary Care Nurse Name: Rosa Ngo RN Position: [facility] RN Member Role: Primary Care Nurse Name: Caryn Tripathi RN Position: [facility] RN Member Role: Primary Care Nurse Name: Roma Baker RN Position: [facility] RN Member Role: Primary Care Nurse Name: Anthony Fowler RN Position: [facility] RN Member Role: Primary Care Nurse Name: Janina Michele Position: [facility] RN Member Role: Primary Care Nurse Name: Denise Ibarra RN Position: [facility] RN Member Role: Primary Care Nurse Name: Tiburcio Hercules RN Position: [facility] RN Max Member Role: Primary Care Nurse Name: Brenna Collazo RN Position: [facility] RN Member Role: Primary Care Nurse Name: Susan Sheikh RN Position: [facility] RN Member Role: Primary Care Nurse Name: Yesy Adams Position: [facility] RN Member Role: Primary Care Nurse Name: Delores Garcia RN Position: [facility] RN Member Role: Primary Care Nurse Name: Suzanna Kim RN Position: [facility] RN Member Role: Primary Care Nurse Name: Chandrika Luis RN Position: [facility] RN Member Role: Primary Care Nurse Name: Eda Luna RN Position: [facility] RN Member Role: Primary Care Nurse Care Team Related Persons Name: ELI KIM Address: [address] [address] Name: JUAN KIM
--- OUTSIDE RECORDS SUMMARY | 2024-04-02 06:19 | XMS_ITS | Continuity of Care Document ---
Author Organization [facility] Address [address] [place] [address]- Care Team Providers Care Rfid Analyst Name Role Phone Annalisa Mishra MD Primary Care Physician Encounter [facility] [place] Date(s): 12/29/22 - 01/28/23 [facility] [address] [place] [address]- Allergies, Adverse Reactions, Alerts Substance Reaction Severity [...] DAY, # 84 tablet, 0 Refills, Maintenance, 01/26/23 17:01:00 [facility], 173.7, cm, 01/15/23 12:41:00 EDT, Height, 104.5, kg, 04/01/21 6:08:00 EDT, Dry Weight Start Date: 01/26/23 Status: Ordered D3 By Mouth, Daily, 0 [...] Refills, Maintenance, 02/27/22 12:47:00 EDT, Tablet, [facility]/pharmacy #0693, Partial fill upon patient request if the prescription is for a schedule II opioid drug., 173.7, cm, 01/31/22 9:57:00... Start Date: 02/27/22 Status: Ordered labetalol 200 mg oral tablet 2 tablet, By Mouth, Every 8 hours, # 540 tablet, 1 Refills, Maintenance, 09/30/22 15:25:00 EST[facility] 173.7, cm, 07/28/22 13:45:00 EST, Height, 104.5, [...] Refills, Maintenance, 11/16/22 17:01:00 EDT, [facility], 173.7, cm, 10/23/22 9:44:00 EST, Height, 104.5, [...] injury) Confirmed Active Urinary incontinence Confirmed Active 68599 Social History Social History Type Response Smoking Status Never (less than 100 in lifetime) entered on: 04/17/21 Sex Patient Care team information Care Team Personnel Name: Annalisa Mishra MD Position: [facility] Physician - Primary Care Member Role: PCP Address: Address: [address] [place] [address] Name: Oneyda Swift RN Position: S RN Member Role: Primary Care Nurse Name: Shelley Cowan RN Position: [facility] RN Supv Member Role: Primary Care Nurse Name: Brenda Cabrera RN Position: [facility] RN Member Role: Primary Care Nurse Name: Rosa Ngo RN Position: [facility] RN Member Role: Primary Care Nurse Name: Charli Cosme RN Position: [facility] RN Member Role: Primary Care Nurse Name: Mary Calix RN Position: [facility] RN Member Role: Primary Care Nurse Name: Caryn Tripathi RN Position: [facility] RN Member Role: Primary Care Nurse Name: Roma Baker RN Position: [facility] RN Member Role: Primary Care Nurse Name: Anthony Fowler RN Position: [facility] RN Member Role: Primary Care Nurse Name: Janina Michele Position: [facility] RN Member Role: Primary Care Nurse Name: Denise Ibarra RN Position: [facility] RN Member Role: Primary Care Nurse Name: Tiburcio Hercules RN Position: [facility] RN Supv Member Role: Primary Care Nurse Name: Brenna Collazo RN Position: [facility] RN Member Role: Primary Care Nurse Name: Susan Sheikh RN Position: [facility] RN Member Role: Primary Care Nurse Name: Yesy Adams Position: [facility] RN Member Role: Primary Care Nurse Name: Delores Garcia RN Position: [facility] RN Member Role: Primary Care Nurse Name: Susan Bates RN Position: [facility] RN Member Role: Primary Care Nurse Name: Suzanna Kim RN Position: [facility] RN Member Role: Primary Care Nurse Name: Chandrika Luis RN Position: [facility] RN Member Role: Primary Care Nurse Name: Jessica Fulton RN Position: [facility] PCO w/OE and EZ Script Member Role: Primary Care Nurse Name: Eda Luna RN Position: [facility] RN Member Role: Primary Care Nurse Care Team Related Persons Name: ELI KIM Address: [address] [address]
--- OUTSIDE RECORDS SUMMARY | 2024-04-02 06:19 | XMS_ITS | Continuity of Care Document ---
Author Organization [facility] Address [address] [place] [address]- Care Team Providers Care Software Test Developer Name Role Phone Annalisa Mishra MD Primary Care Physician Encounter [facility] Date(s): 07/09/23 - 08/08/23 [facility] [address] [place] [address]- Allergies, Adverse Reactions, Alerts Substance Reaction Severity [...] 1 Refills, Maintenance, 06/04/23 12:05:00 EDT, [id number], 178, cm, 06/03/23 13:07:00 EDT, Height, 104.4, [...] Refills, Maintenance, 11/16/22 17:01:00 EDT, [facility], 173.7, cm, 10/23/22 9:44:00 EST, Height, 104.5, [...] injury) Confirmed Active Urinary incontinence Confirmed Active 43123 Social History Social History Type Response Smoking Status Never (less than 100 in lifetime) entered on: 04/17/21 Sex Patient Care team information Care Team Personnel Name: Annalisa Mishra MD Position: [facility] Physician - Primary Care Member Role: PCP Address: Address: [address] [place] [address] Name: Oneyda Swift RN Position: [facility] ED RN W/OE and Tasks Member Role: Primary Care Nurse Name: Shelley Cowan RN Position: [facility] RN Supv Member Role: Primary Care Nurse Name: Brenda Cabrera RN Position: [facility] RN Member Role: Primary Care Nurse Name: Rosa Ngo RN Position: [facility] RN Member Role: Primary Care Nurse Name: Charli Cosme RN Position: [facility] RN Member Role: Primary Care Nurse Name: Mary Calix RN Position: [facility] RN Member Role: Primary Care Nurse Name: Caryn Tripathi RN Position: [facility] RN Member Role: Primary Care Nurse Name: Roma Baker RN Position: [facility] RN Member Role: Primary Care Nurse Name: Anthony Fowler RN Position: [facility] RN Member Role: Primary Care Nurse Name: Janina Michele Position: [facility] RN Member Role: Primary Care Nurse Name: Denise Ibarra RN Position: [facility] RN Member Role: Primary Care Nurse Name: Tiburcio Hercules RN Position: [facility] RN Supv Member Role: Primary Care Nurse Name: Brenna Collazo RN Position: [facility] RN Member Role: Primary Care Nurse Name: Susan Sheikh RN Position: [facility] RN Member Role: Primary Care Nurse Name: Yesy Adams Position: [facility] RN Member Role: Primary Care Nurse Name: Delores Garcia RN Position: [facility] RN Member Role: Primary Care Nurse Name: Susan Bates RN Position: [facility] RN Member Role: Primary Care Nurse Name: Suzanna Kim RN Position: [facility] RN Member Role: Primary Care Nurse Name: Chandrika Luis RN Position: [facility] RN Member Role: Primary Care Nurse Name: Eda Luna RN Position: [facility] RN Member Role: Primary Care Nurse Care Team Related Persons Name: ELI KIM Address: [address] [address]
[2024-04-02 06:23] VITALS: BP 100/73; PULSE 86; RESP 17; TEMP 36.6; O2SAT 95
[2024-04-02 06:58] VITALS: BP 100/73; PULSE 86; RESP 17; TEMP 36.6; O2SAT 95
== END 2024-04-02 07:18 | disposition home or self-care (01) ==
PROVIDERS: Emergency Provider Emergency Medicine Emergency Medical Services; PCP Pediatrics
DX: F10.220 Alcohol dependence with intoxication, uncomplicated (principal); Y90.8 Blood alcohol level of 240 mg/100 ml or more; S00.03XA Contusion of scalp, initial encounter; S09.90XA Unspecified injury of head, initial encounter; R56.9 Unspecified convulsions; W18.30XA Fall on same level, unspecified, initial encounter; Z87.820 Personal history of traumatic brain injury; Y93.9 Activity, unspecified; Y92.414 Local residential or business street as the place of occurrence of the external cause; Y99.9 Unspecified external cause status
CPT/HCPCS: 36415; 70450; 72125; 80053; 80307; 83690; 83735; 85025; 99284